=== PATIENT | female | born 1970 | race Caucasian/White ===

== ENCOUNTER 2021-09-29 10:26 | Emergency (ER) | payer OTHER, SELFPAY ==
[2021-09-29 10:44] VITALS: BP 168/105; PULSE 77; RESP 20; TEMP 36.6; O2SAT 96
--- NOTE | 2021-09-29 10:49 | ED.GENADULT ---
HPI - General Adult General Chief complaint: Back Pain/Injury Stated complaint: back pain History of Present Illness HPI narrative: Jordyn is a 50F with a PMH of OA and HTN that presented to the ED with back pain. It started while she was picked up a dog and groomed it. It has become worse. No loss of bowel or bladder control. No weakness or paralysis. It starts between her shoulder blades and goes down the right side to her buttock. Related Data Allergies Allergy/AdvReac Type Severity Reaction Status Date / Time Penicillins Allergy Severe Dyspnea / Verified 09/29/21 10:44 SOB Review of Systems Review of Systems: All systems reviewed & are unremarkable except as noted in HPI and below PMFSH Past Medical History Medical History (Updated 09/29/21 @ 10:54 by Raman Moore DO) Carpal tunnel syndrome, left Surgical History Surgical History (Updated 07/31/21 @ 10:41 by Krissy Mauricio) History of carpal tunnel surgery Right wrist History of cholecystectomy History of knee surgery Left knee meniscus Family History Family History (Updated 07/31/21 @ 10:42 by Krissy Mauricio) Other Arthritis Hypertension Social History Social History (Updated 07/31/21 @ 10:43 by Krissy Mauricio) Smoking packs per day: 1.5 Smoking cigarettes per day: 30.0 Years smoked: 30 Smoking pack-years: 45.00 Smoking status: Current every day smoker Tobacco type: cigarettes Alcohol intake: current Substance use: never Substance use type: does not use 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 Hypertonic paraspinal musculature on the right side along the entire back. Skin: Rashes: no rashes Wounds: no wounds Neuro: General: patient oriented x3 and moves all extremities Extrem: General: normal to inspection Other: 5/5 strength throughout the upper and lower extremities. 2/4 patellar reflexes bialterally, 2/4 biceps, brachioradialis and triceps reflexes Psych: Mental Status: mental status grossly normal Course Course Emergency Course: Given toradol and cyclobenzaprine for pain Vital Signs Vital signs: Vital Signs Temperature 97.9 F 09/29/21 10:44 Pulse Rate 77 09/29/21 10:44 Respiratory Rate 20 09/29/21 10:44 Blood Pressure 168/105 H 09/29/21 10:44 Pulse Oximetry 96 09/29/21 10:44 Oxygen Delivery Room Air 09/29/21 10:44 Temperature 97.9 F 09/29/21 10:44 Pulse Rate 78 09/29/21 11:15 Respiratory Rate 20 09/29/21 11:15 Blood Pressure 168/105 H 09/29/21 10:44 Pulse Oximetry 95 09/29/21 11:15 Oxygen Delivery Room Air 09/29/21 11:15 Medical Decision Making Vital Signs Vital Signs: Vital Signs Temperature 97.9 F 09/29/21 10:44 Pulse Rate 77 09/29/21 10:44 Respiratory Rate 20 09/29/21 10:44 Blood Pressure 168/105 H 09/29/21 10:44 Pulse Oximetry 96 09/29/21 10:44 Oxygen Delivery Room Air 09/29/21 10:44 Temperature 97.9 F 09/29/21 10:44 Pulse Rate 78 09/29/21 11:15 Respiratory Rate 20 09/29/21 11:15 Blood Pressure 168/105 H 09/29/21 10:44 Pulse Oximetry 95 09/29/21 11:15 Oxygen Delivery Room Air 09/29/21 11:15 Discharge Plan Discharge Clinical Impression: Acute mechanical low back pain with duration of less than six weeks Patient Disposition: Home, Self-Care Condition: Stable In
[2021-09-29] MEDS: KETOROLAC 30 MG/ML VIAL (*BKC) IM (10:53)
[2021-09-29] MEDS: CYCLOBENZAPRINE HCL 10 MG TABLET PO (10:54)
[2021-09-29 11:15] VITALS: PULSE 78; RESP 20; O2SAT 95
== END 2021-09-29 11:16 | disposition home or self-care (01) ==
PROVIDERS: Emergency Provider Family Medicine
DX: M54.50 Low back pain, unspecified (principal)
CPT/HCPCS: 96372; 99283; A9270; J1885

== ENCOUNTER 2021-12-11 12:53 | Outpatient (CLI) | payer OTHER, SELFPAY ==
[2021-12-11 15:30] LABS: Urine Cotinine NEGATIVE
== END 2021-12-11 12:54 | disposition home or self-care (01) ==
LOC: ANHLAB 12:54
PROVIDERS: Visit Provider Orthopaedic Surgery
DX: F17.200 Nicotine dependence, unspecified, uncomplicated (principal)
CPT/HCPCS: 80307

== ENCOUNTER 2021-12-16 13:20 | Outpatient (CLI) | payer OTHER, SELFPAY ==
--- NOTE | 2021-12-16 13:30 | ECG_ITS ---
Measurements Intervals [place] Rate: 66 P: 39 MD: 149 QRS: 57 QRSD: 84 T: 61 QT: 387 QTc: 406 Interpretive Statements SINUS RHYTHM NORMAL ECG NO PREVIOUS ECG AVAILABLE FOR COMPARISON Electronically Signed On 12-16-2021 14:18:23 CDT by Dudley London M.D.
== END 2021-12-16 13:21 | disposition home or self-care (01) ==
LOC: ANHSURGERY 13:40
PROVIDERS: Visit Provider Orthopaedic Surgery
DX: Z87.891 Personal history of nicotine dependence (principal); Z01.818 Encounter for other preprocedural examination
CPT/HCPCS: 93005

== ENCOUNTER 2021-12-18 00:09 | Day surgery (SDC) | payer OTHER, SELFPAY ==
[2021-12-15 14:09] VITALS: BMI 22.4
--- NOTE | 2021-12-15 14:43 | PC.NURSE ---
Report to the Outpatient Waiting Room, entrance under the green pavilion located off [facility], at time __0600 on date _12/18/21 . OR Time: _729 . - You and your visitor will be asked to self-screen and do not enter if you have any COVID symptoms. - Only one visitor and NO children visitors are allowed at this time. - The patient visitor is requested to leave or wait in car when not with patient due to restrictions. - A mask is required within the hospital. Patients may have clear liquids (water, carbonated beverages, clear teas, apple juice) until 3 hours prior to surgery with a maximum of 20 ounces. - No food from midnight until time of surgery - Infants may have breast milk until 4 hours before surgery, infant formula 6 hours prior to surgery. - Children will be allowed to drink immediately following surgery. If applicable, please bring a bottle or sippy cup to assist with drinking. Juice, water, soda, and popsicles are readily available. For infants on formula, please bring formula the day of surgery. Pacifiers are allowed. Take the following medications with a SIP of water the morning of surgery: CEPHALEXIN Medications to discontinue per physician ____MULTIVITAMIN Date to take last dose__12/15/21 Please no make-up, nail swedish, hairspray, perfume, deodorant, or body powder the day of surgery. No jewelry (including any body piercings) or valuables the day of surgery, leave them at home. Please take a shower or bath the night before, or the morning of, surgery with an antibacterial soap. Wear comfortable, loose fitting clothing. Children are encouraged to wear pajamas. - Jewelry must be removed prior to entering the operating room. Rings and piercings that are not removed may be cut off. - The hospital will not accept responsibility for valuables. - Please leave all valuables, including medications, at home the day of surgery. If you are going home after surgery, a licensed route sales delivery drivers supervisor must drive you home. - NO public transportation without another adult. - We recommend that an adult stay with you for 24 hours following discharge. - We also recommend that you do not drive, make important decision, drink alcoholic beverages, or take any drugs that were not prescribed by your health care provider for at least 24 hours after your discharge time. For Pediatric surgeries, we recommend two adults accompany the child home (only one inside the building at this time). Follow any additional instructions given to you from your surgeon. If you or anyone in your household have experienced Covid symptoms in the past week, please notify your surgeon or the nurse liaison at the phone number below for possible testing. Telephone instructions given to ____PATIENT and asked if any additional questions and then verbalized understanding. Patient advised to call surgeon office or pre surgery nurse liaison [phone] if any additional questions.
--- NOTE | 2021-12-17 10:40 | PM.IMHP ---
H&P: HPI History of Present Illness Date/Time: 12/17/21 10:40 Chief Complaint: Left hand numbness and tingling. Narrative: 51-year-old woman with continued left hand numbness and tingling. No improvement with activity modification and bracing. As at nerve study which shows median nerve compression and carpal tunnel. Patient with previous right carpal tunnel release with good results. Review of Systems Constitutional: Constitutional: Denies fever(s) Eyes: Eyes: Denies blurry vision ENT: Reports Normal hearing present Cardiovascular: Cardiovascular: Denies chest pain and Denies dyspnea Respiratory: Respiratory: Denies dyspnea and Denies wheezing Gastrointestinal: Gastrointestinal: Denies abdominal pain Genitourinary: Genitourinary: Denies urinary urgency Musculoskeletal: Musculoskeletal: Reports as per HPI and Denies numbness Integumentary/Breasts: Skin/Breast: Denies changing lesions and Denies sores Neurologic: Reports Normal hearing present, Denies behavioral changes, Denies confusion, Denies numbness and Denies convulsions Psychiatric: Psychiatric: Denies behavioral changes, Denies confusion and Denies hallucinations Endocrine: Endocrine: Denies heat intolerance Hematologic/Lymphatic: Hematologic/Lymphatic: Denies easy bleeding Allergic/Immunologic: Allergic/Immunologic: Denies wheezing PMFSH Past Medical History Medical History Carpal tunnel syndrome, left Surgical History Surgical History History of carpal tunnel surgery Right wrist History of cholecystectomy History of knee surgery Left knee meniscus Family History Family History Other Arthritis Hypertension Social History Social History Smoking packs per day: 1.5 Smoking cigarettes per day: 30.0 Years smoked: 34 Smoking pack-years: 51.00 Smoking status: Former smoker Tobacco type: cigarettes Alcohol intake: current Substance use: never Substance use type: does not use Last use: 08/2021 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 [employer] Gender identity (if verbalized by the patient): Female Spiritual care concerns: No Meds Home Medications and Allergies Home Medications Medication Instructions Recorded Confirmed Type Adults Multivitamin 1 tab-cap PO DAILY 12/15/21 12/15/21 History cephalexin 500 mg capsule 500 mg PO TID 12/15/21 12/15/21 History Allergies Allergy/AdvReac Type Severity Reaction Status Date / Time Penicillins Allergy Severe Dyspnea / Verified 12/15/21 14:18 SOB Exam Const: General: cooperative, healthy appearing, no acute distress, well developed and alert; No confusion Orientation/consciousness: patient oriented x3 and No confusion HENMT: Head: normal to inspection, normocephalic and atraumatic Eyes: Conjunctivae: conjunctivae normal Sclera: sclerae normal Neck: Neck: supple and nontender Chest: Chest palpation & inspection: normal inspection of the chest Resp: Effort & Inspection: normal respiratory effort and no audible wheezes Cardio: Rate: regular rate Rhythm: regular rhythm : General: Yes deferred Skin: General skin exam: no rashes or lesions noted Neuro: General: patient oriented x3 and No confusion Assessment and Plan Assessment and plan (1) Carpal tunnel syndrome, left: Code(s): G56.02 - Carpal tunnel syndrome, left upper limb Status: Acute Assessment and Plan: Discussed nonoperative and operative treatment options with the patient. Risks and benefits of each as well as alternatives were reviewed. All of the patient's questions were answered. The risks of surgery reviewed including but not limited to: Neurovascular damage, wound complication, infection, blood
[2021-12-18 06:31] VITALS: BP 169/95; PULSE 78; RESP 18; TEMP 36.3; O2SAT 99
--- NOTE | 2021-12-18 06:53 | P.PNAN_ITS ---
Anes - Initial Pre Proc Eval Procedure: Operation Date: 12/18/21 07:30 Proposed Procedures p Left Carpal Tunnel Release - Wood Bingham MD Date/Time: 12/18/21 06:53 Surgeon: Wood Bingham MD Pre Op Diagnosis: left carpal tunnel syndrome Patient Data Age: 51 Gender: F Height: 1.8 m Weight: 102.6 kg Last Vital Signs Temp 36.3 C L 12/18/21 06:31 Pulse 78 12/18/21 06:31 Resp 18 12/18/21 06:31 BP 169/95 H 12/18/21 06:31 Pulse Ox 99 12/18/21 06:31 O2 Del Method Room Air 12/18/21 06:31 Allergies Allergy/AdvReac Type Severity Reaction Status Date / Time Penicillins Allergy Severe Dyspnea / Verified 12/18/21 06:20 SOB Home Medications Medication Instructions Recorded Confirmed Type Adults Multivitamin 1 tab-cap PO DAILY 12/15/21 12/18/21 History cephalexin 500 mg capsule 500 mg PO TID 12/15/21 12/18/21 History Patient hx anesthesia problems: none Family hx anesthesia problems: none Results Review: All pre-operative results and documents have been reviewed as part of the pre- operative evaluation. [facility] Past Medical History Medical History Carpal tunnel syndrome, left Surgical History Surgical History (Updated 12/18/21 @ 06:53 by Pasha Cannon DO) History of carpal tunnel surgery Right wrist History of cholecystectomy History of knee surgery Left knee meniscus History of partial hysterectomy Family History Family History Other Arthritis Hypertension Social History Social History Smoking packs per day: 1.5 Smoking cigarettes per day: 30.0 Years smoked: 34 Smoking pack-years: 51.00 Smoking status: Former smoker Tobacco type: cigarettes Alcohol intake: current Substance use: never Substance use type: does not use Last use: 08/2021 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 Informed Consent: The patient's anesthetic plan and its attendant risks and benefits were discussed with the patient/family/POA. Questions were solicited and answers provided to the satisfaction of the patient/family/POA.
[2021-12-18] MEDS: ACETAMINOPHEN 500 MG TABLET 1000 MG PO (06:55)
[2021-12-18] MEDS: LACTATED RINGERS 1,000 ML 30 ML IV CONT (06:55)
[2021-12-18] MEDS: KETOROLAC 15 MG/ML VIAL (*BKC) IV PUSH (06:56)
--- NOTE | 2021-12-18 07:01 | WPDHPUPDATE1 ---
History and Physical Update Update Date/Time: 12/18/21 07:01 History and Physical has been reviewed, including an updated exam of the patient. There are NO changes in the patient's condition. Risks, benefits, and alternatives have been discussed and questions answered. Patient agrees to proceed with procedure.
--- NOTE | 2021-12-18 07:22 | SUR.PREOP ---
DR QUEZADA AWARE PATIENT IS ON HOME PO CEPHALEXIN FOR DENTAL ISSUES. STILL OK TO RECEIVE IV ANCEF PER SURGERY ORDERSET.
[2021-12-18] MEDS: ceFAZolin 2 GM/D5W 50 ML 2 GM/50 ML BAG IVPB (07:27)
[2021-12-18] MEDS: LIDOCAINE HCL 2% PF INJ 5 ML VIAL 20 ML INFILTRATE (07:56)
[2021-12-18 08:09] VITALS: BP 108/58; PULSE 70; RESP 18; O2SAT 96
[2021-12-18 08:30] VITALS: BP 146/82; PULSE 63; RESP 16; O2SAT 96
[2021-12-18 09:00] VITALS: BP 160/91; PULSE 61; RESP 16
--- NOTE | 2021-12-18 09:12 | P.OP_ITS ---
Procedure Note - Detailed Date of Procedure 12/18/21 Pre-op Diagnosis left carpal tunnel syndrome Post-op Diagnosis Same Procedure Performed Left carpal tunnel release Surgeon Wood Bingham MD Customer Relations Coordinator 1st hearing aid assistant Anesthesia MAC Indications 51-year-old with left carpal tunnel syndrome per diagnostic testing. Presents for operative treatment. Description of Procedure The patient has history, exam findings, and electrodiagnostic findings consistent with carpal tunnel syndrome. Conservative treatment with bracing/ splinting, activity modifications, medication, ergonomics, injections has failed. Symptoms are daily and affect ability to use hand. The patient desires operative treatment. Procedure: After informed consent was given, the operative extremity was marked in the preoperative holding area. Intravenous antibiotics were given. The patient was taken to the operating room and underwent conscious sedation by the anesthesia team. A time-out was performed confirming patient, procedure, and operative site. Local infiltrate at the carpal tunnel was done with 0.5% marcaine. Prepping and draping was done using chloraprep skin solution with usual surgical sterile technique. Anatomic landmarks marked on skin. Hand was exsanguinated and arm tourniquet inflated to 225mmHg. Incision was made with #15 blade knife in skin crease on volar palm. Hemostasis was achieved with electrocautery. Careful dissection was carried down to the transverse carpal ligament. Retractors were placed. Ligament overlying median nerve was incised in line with skin incision using [place] blade. Proximal and distal release was done with metzenbaum scissors under direct visualization. Mosquito clamp was placed deep to ligament to protect nerve during release. The nerve was inspected and noted to be intact with mild flattening. Tendons had good excursion. The tourniquet was then released and pressure held. Bleeding points were coagulated with bipolar cautery. The wound was thoroughly irrigated with antibiotic solution. The skin was closed with 4-0 nylon interrupted suture. A sterile dressing was applied. Good capillary refill in the fingers and thumb was noted. The patient was transported to the recovery room in stable condition. All sponge, needle, instrument counts were correct at the end of the case. Estimated Blood Loss 2 Tourniquet Time 6 Drains No Packing No Pathology None sent Complications None Condition Stable Disposition PACU
== END 2021-12-18 09:21 | disposition home or self-care (01) ==
PROVIDERS: Visit Provider Orthopaedic Surgery
PROC: (CPT 64721; principal; 2021-12-18 07:30)
DX: G56.02 Carpal tunnel syndrome, left upper limb (principal); Z87.891 Personal history of nicotine dependence; E66.9 Obesity, unspecified; Z68.31 Body mass index [BMI] 31.0-31.9, adult
CPT/HCPCS: 64721; 93005; A9270; J0690; J1885; J2250; J2704; J3010; J7120

== ENCOUNTER 2022-09-22 18:48 | Emergency (ER) | payer OTHER, SELFPAY ==
[2022-09-22 18:48] VITALS: BP 162/99; PULSE 90; RESP 18; TEMP 37.2; O2SAT 98
--- NOTE | 2022-09-22 18:56 | ED.DENTAL ---
HPI - Dental/Oral General Chief complaint: Dental/Oral Stated complaint: lower right dental pain Time Seen by Provider: 09/22/22 18:55 Source: patient and RN notes reviewed Mode of arrival: ambulatory Limitations: no limitations History of Present Illness HPI Narrative: patient states that she went to a local dentist about a month ago and had several injections around the tooth in order to have it removed. She still could feel it had significant pain while they tried to remove it so the procedure was discontinued and she was advised to go see an oral surgeon. She says she cannot get into the Oral surgeon till April. Complaint: tooth pain Onset (ago): day(s) (3) Duration: constant Severity: moderate Exacerbating factors: chewing Context: history of dental caries Treatment prior to arrival: none Related Data Home Medications Medication Instructions Recorded Confirmed Adults Multivitamin 1 tab-cap PO DAILY 12/15/21 12/29/21 cephalexin 500 mg capsule 500 mg PO TID 12/15/21 12/29/21 Allergies Allergy/AdvReac Type Severity Reaction Status Date / Time Penicillins Allergy Severe Dyspnea / Verified 09/22/22 19:11 SOB Review of Systems Review of Systems: All systems reviewed & are unremarkable except as noted in HPI and below PMFSH Past Medical History Medical History Carpal tunnel syndrome, left Surgical History Surgical History History of carpal tunnel surgery Right wrist History of cholecystectomy History of knee surgery Left knee meniscus History of partial hysterectomy Family History Family History Other Arthritis Hypertension Social History Social History Smoking packs per day: 1.5 Smoking cigarettes per day: 30.0 Years smoked: 34 Smoking pack-years: 51.00 Smoking status: Current some day smoker Tobacco type: cigarettes Alcohol intake: current Substance use: never Substance use type: does not use Last use: 08/2021 Living arrangements: with family Occupation/Education: occupation 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 tender swollen small abscess posterior to the tooth. Throat: posterior oropharynx normal Eyes: Conjunctivae: conjunctivae normal Pupils: Equal, round and reactive pupils present EOM: EOMs intact bilaterally Neck: Neck: normal visual inspection Resp: Effort & Inspection: normal respiratory effort Auscultation: clear to auscultation bilaterally Cardio: Rate: regular rate Rhythm: regular rhythm GI: GI Palp: Yes Soft to palpation and No Tenderness to palpation present (GI) Auscultation: normal bowel sounds Back/Spine/Pelvis: Cervical Spine: cervical ROM normal Thoracic/Lumbar Spine: thoraco-lumbar ROM normal Skin: General skin exam: normal color Rashes: no rashes Neuro: General: patient oriented x3, moves all extremities, no focal motor deficits and CN's II-XI intact bilaterally Speech: normal speech Gait exam (Neuro): Normal gait present Extrem: General: normal to inspection and no clubbing, cyanosis or edema Psych: Mental Status: mental status grossly normal Affect: normal affect Attitude: cooperative Course Vital Signs Vital signs: Vital Signs Temperature 37.2 C 05/2
[2022-09-22] MEDS: KETOROLAC 30 MG/ML VIAL (*BKC) IM (19:25)
[2022-09-22] MEDS: CLINDAMYCIN HCL 150 MG CAP 300 MG PO (19:25)
== END 2022-09-22 19:50 | disposition home or self-care (01) ==
PROVIDERS: Emergency Provider Emergency Medicine
DX: K04.7 Periapical abscess without sinus (principal); F17.210 Nicotine dependence, cigarettes, uncomplicated
CPT/HCPCS: 96372; 99283; A9270; J1885

== ENCOUNTER 2022-10-04 17:36 | Emergency (ER) | payer OTHER, SELFPAY ==
--- NOTE | ~2022-10-04 | XR_ITS ---
Right foot Technique: AP, oblique, and lateral views were obtained. Clinical History: Injury Findings: Questionable minimal irregularity lateral aspect of the base of the second metatarsal on th e oblique view. No other evidence for fracture or dislocation. Joint spaces are preserved without ero sive or degenerative change. Soft tissues are unremarkable. Impression: Questionable minimal irregularity at the lateral aspect of the base of second metatarsal. This is fel t to be likely projectional in nature, however subtle fracture is not completely excluded. Correlate for point tenderness in the region of the second TMT joint. Consider CT to further evaluate for fract ure as indicated. Reviewed, dictated and finalized at location . Impression: Questionable minimal irregularity at the lateral aspect of the base of second m etatarsal. This is felt to be likely projectional in nature, however subtle fra cture is not completely excluded. Correlate for point tenderness in the region of the second TMT joint. Consider CT to further evaluate for fracture as indica laura.
[2022-10-04 18:40] VITALS: BP 185/103; PULSE 75; RESP 18; TEMP 36.6; O2SAT 100
--- NOTE | 2022-10-04 19:04 | PC.NURSE ---
report to kendrick keene. all questions answered
[2022-10-04 19:26] VITALS: BP 132/70; PULSE 69; RESP 18; TEMP 36.6; O2SAT 98
[2022-10-04] MEDS: ACETAMINOPHEN 500 MG TABLET 1000 MG PO (20:26)
[2022-10-04] MEDS: TETANUS,DIPHTHERIA,AC PERTUSSIS ADULT 0.5 ML (ADACEL) IM (20:27)
--- NOTE | 2022-10-04 21:27 | ED.GENADULT ---
HPI - General Adult General Chief complaint: Wound/Laceration Stated complaint: R toenail injury;pt thinks she needs tetanus shot Source: patient Mode of arrival: ambulatory Limitations: no limitations History of Present Illness HPI narrative: 51-year-old white female was out in the yd today scraped her 2nd toe on her right foot . Complaint of 2nd toe being painful mildly swollen she has little bit of blood coming underneath the nail, just 1 drop. No subungual hematoma. Hurts to walk on it denies any other injury. Tetanus immunization is greater than 5 years she was given 1 here in the emergency department. Denies any previous injury or other injuries. Denies numbness or weakness. Denies any cough fever sore throat runny nose rash or itching swelling lumps or bumps problems eating or drinking voiding or stooling Related Data Home Medications Medication Instructions Recorded Confirmed No Home Medications 10/04/22 10/04/22 Allergies Allergy/AdvReac Type Severity Reaction Status Date / Time Penicillins Allergy Severe Dyspnea / Verified 09/22/22 19:11 SOB Review of Systems Review of Systems: All systems reviewed & are unremarkable except as noted in HPI and below PMFSH Past Medical History Medical History Carpal tunnel syndrome, left Surgical History Surgical History History of carpal tunnel surgery Right wrist History of cholecystectomy History of knee surgery Left knee meniscus History of partial hysterectomy Family History Family History Other Arthritis Hypertension Social History Social History Smoking packs per day: 1.5 Smoking cigarettes per day: 30.0 Years smoked: 34 Smoking pack-years: 51.00 Smoking status: Current some day smoker Tobacco type: cigarettes Alcohol intake: current Substance use: never Substance use type: does not use Last use: 08/2021 Living arrangements: with family Occupation/Education: occupation 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 right ankle full range of motion nontender right foot. Her 2nd toe is tender mildly swollen she has partial nail avulsion where a drop of blood has come underneath the nail. There is no subungle hematoma. rest of her foot is nontender. Gait is slightly antalgic. DP and PT pulses are +2 capillary refills normal. Course Vital Signs Vital signs: Vital Signs Temperature 36.6 C 10/04/22 18:40 Pulse Rate 75 10/04/22 18:40 Respiratory Rate 18 10/04/22 18:40 Blood Pressure 185/103 H 10/04/22 18:40 Pulse Oximetry 100 10/04/22 18:40 Oxygen Delivery Room Air 10/04/22 18:40 Temperature 36.6 C 10/04/22 19:26 Pulse Rate 69 10/04/22 19:26 Respiratory Rate 18 10/04/22 19:26 Blood Pressure 132/70 10/04/22 19:26 Pulse Oximetry 98 10/04/22 19:26 Oxygen Delivery Room Air 10/04/22 19:26 Medical Decision Making [facility] Narrative Medical decision making narrative: Patient was placed in room 5 history and physical were done x-ray of her right foot was done. Radiologist read a questionable minimally irregularity at the lateral aspect of the base of the 2nd metatarsal and recommend clinical correlation there is no tenderness at that area whatsoever After re-examined. The toe was washed and Band-Aid was applied she is given a tetanus immunization. And A postop shoe for comfort. Independent Historian: Patient Differential Dx includes but not limited to: fracture dislocation Medications were Reviewed: yes Independently Interpreted by me: x-ray of
[2022-10-04 21:39] VITALS: BP 138/74; PULSE 87; RESP 20; TEMP 36.6; O2SAT 98
== END 2022-10-04 21:44 | disposition home or self-care (01) ==
PROVIDERS: Emergency Provider Emergency Medicine
DX: S90.121A Contusion of right lesser toe(s) without damage to nail, initial encounter (principal); F17.210 Nicotine dependence, cigarettes, uncomplicated; Z23 Encounter for immunization; X58.XXXA Exposure to other specified factors, initial encounter
CPT/HCPCS: 73630; 90471; 90715; 99283

== ENCOUNTER 2022-10-14 21:15 | Emergency (ER) | payer OTHER, SELFPAY ==
--- NOTE | ~2022-10-14 | XR_ITS ---
EXAMINATION: XR chest 1V portable INDICATION: Shortness of breath TECHNIQUE: Portable AP chest at 2158 hours COMPARISON: None available FINDINGS: The lungs are free of acute opacities. No pleural effusion or pneumothorax. Thoracic dextro scoliosis is noted. The cardiomediastinal silhouette is normal. IMPRESSION: 1. No acute cardiopulmonary abnormality. Reviewed, dictated and finalized at location A.
--- NOTE | 2022-10-14 21:17 | ED.ANXIETY ---
HPI - Anxiety General Chief Complaint: Anxiety Stated Complaint: Anxiety/stress Time Seen by Provider: 10/14/22 21:16 Source: patient Mode of arrival: ambulatory Limitations: no limitations History of Present Illness HPI narrative: 51-year-old female smoker with a history of anxiety presents to the ER with a 1 day history -- severe stress with anxiety -- numbness and tingling of her fingertips and toes -- shortness of breath. No cough -- high blood pressure of 200/100 at home. Currently her blood pressure is 158/86. no fever or chills no chest pain or palpitation she has had prior episodes of anxiety/panic attacks MD complaint: anxiety Onset (ago): day(s) ( Started since morning.) Symptoms: dyspnea Severity: moderate Quality: constant Place: home History of similar episodes: Yes Provoking factors: emotional stress Relieving factors: nothing Exacerbating factors: nothing Associated symptoms: shortness of breath, weakness and other ( Paresthesias of toes and fingertips) Related Data Allergies Allergy/AdvReac Type Severity Reaction Status Date / Time Penicillins Allergy Severe Dyspnea / Verified 10/14/22 21:25 SOB Review of Systems Review of Systems: All systems reviewed & are unremarkable except as noted in HPI and below Constitutional: Constitutional: Reports as per HPI and Reports no additional constitutional complaints Eyes: Eyes: Reports as per HPI and Reports no additional eye complaints ENT: Reports system reviewed and no additional complaints, except as documented and Reports as per HPI Cardiovascular: Cardiovascular: Reports as per HPI and Reports no additional cardiovascular complaints Respiratory: Respiratory: Reports as per HPI, Reports no additional respiratory complaints and Reports dyspnea Gastrointestinal: Gastrointestinal: Reports as per HPI and Reports no additional gastrointestinal complaints Genitourinary: Genitourinary: Reports no additional female genitourinary complaints and Reports as per HPI Musculoskeletal: Musculoskeletal: Reports no additional musculoskeletal complaints and Reports as per HPI Comments: pulled a muscle in her right back 1 week ago and has intermittent back pain. Integumentary/Breasts: Skin/Breast: Reports system reviewed and no additional complaints, except as docu and Reports as per HPI Neurologic: Reports system reviewed and no additional complaints, except as documented, Reports as per HPI and Reports numbness Psychiatric: Psychiatric: Reports no additional psychiatric complaints, Reports as per HPI and Reports anxiety Endocrine: Endocrine: Reports no additional endocrine complaints and Reports as per HPI Hematologic/Lymphatic: Hematologic/Lymphatic: Reports no additional hematologic/lymphatic complaints and Reports as per HPI Allergic/Immunologic: Allergic/Immunologic: Reports no additional allergic/immunologic complaints and Reports as per HPI [facility] Past Medical History Medical History (Updated 10/15/22 @ 02:00 by Rolando Cavanaugh MD) Anxiety Carpal tunnel syndrome, left Surgical History Surgical History History of carpal tunnel surgery Right wrist History of cholecystectomy History of knee surgery Left knee meniscus History of partial hysterectomy Family History Family History Other Arthritis Hypertension Social History Social History Smoking packs per day: 1.5 Smoking cigarettes per day: 30.0 Years smoked: 34 Smoking pack-years: 51.00 Smoking status: Current some day smoker Tobacco type: cigarettes Alcohol intake: current Substance use: never Substance use type: does not use Last use: 08/2021 Living arrangements: with family Occupation/Education: occupation 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
[2022-10-14 21:28] VITALS: BP 166/87; PULSE 83; RESP 20; TEMP 36.2; O2SAT 100
--- NOTE | 2022-10-14 21:28 | ECG_ITS ---
Measurements Intervals [place] Rate: 67 P: 32 [place]: 146 QRS: 54 QRSD: 76 T: 63 QT: 398 QTc: 422 Interpretive Statements SINUS RHYTHM NONSPECIFIC T-WAVE ABNORMALITY BORDERLINE ECG COMPARED TO ECG 12/16/2021 14:00:07 T-WAVE ABNORMALITY NOW PRESENT Electronically Signed On 10-16-2022 13:42:08 CDT by Oseas Reese M.D.
[2022-10-14 21:45] LABS: Basophils Absolute Auto 0.07 K/mm3 (0.00-0.10); Eosinophils Absolute Auto 0.06 K/mm3 (0.02-0.50); Eosinophils Percent Auto 0.9 % (1.0-6.0); Hematocrit 39.2 % (35.0-49.0); Hemoglobin 13.6 g/dL (12.0-15.0); Immature Granulocyte Absolute 0.01 K/mm3 (0.00-0.00); Immature Granulocyte Percent A 0.1 % (0.0-0.0); Lymphocytes Absolute Auto 2.57 K/mm3 (1.10-4.50); Lymphocytes Percent Auto 36.5 % (18.0-42.0); Mean Corpuscular HGB Conc 34.7 g/dL (32.0-36.0); Mean Corpuscular Hemoglobin 31.4 pg (27.0-31.0); Mean Corpuscular Volume 90.5 fL (78.0-102.0); Mean Platelet Volume 10.1 fl (9.2-11.8); Monocytes Absolute Auto 0.54 K/mm3 (0.10-0.90); Monocytes Percent Auto 7.7 % (2.0-11.0); Neutrophils Absolute Auto 3.8 K/mm3 (1.7-7.2); Neutrophils Percent Auto 53.8 % (50.0-70.0); Platelet Count Result 243 K/mm3 (150-420); Red Blood Count 4.33 M/mm3 (4.20-5.40); Red Cell Distribution Width 12.3 % (11.6-14.4); White Blood Count 7.1 K/mm3 (4.8-10.8)
[2022-10-14 22:02] LABS: Lactic Acid Reflex 0.7 mmol/L (0.4-2.0)
[2022-10-14] MEDS: ALPRAZolam (*CRX) 0.5 MG TABLET PO (22:03)
[2022-10-14 22:15] LABS: Alanine Aminotransferase 26 U/L (14-59); Alkaline Phosphatase 135 U/L (46-116); Anion Gap 12 mmol/L (8-16); Aspartate Amino Transferase 17 U/L (15-37); Bilirubin,Total 0.6 mg/dL (0.00-1.00); Blood Urea Nitrogen 11 mg/dL (7-18); Calcium 9.5 mg/dL (8.5-10.1); Carbon Dioxide 26 mmol/L (21-32); Chloride 106 mmol/L (98-108); Estimated CRCL calculation 97 ml/min; Estimated Glomerular Filt Rate > 60; Glucose 105 mg/dL (70-99); Osmolality Calculated 297 mOsm/kg (285-295); Potassium 2.8 mmol/L (3.5-5.1); Sodium 144 mmol/L (136-145); Total Protein 8.1 g/dL (6.4-8.2)
[2022-10-14 22:16] LABS: Appearance Urine Clear (Clear); Bilirubin Urine Negative (Negative); Blood Urine 1+ (Negative); Color Urine Light Yellow (Yellow); Glucose Urine UA Negative (Negative); Ketones Urine Negative (Negative); Leukocyte Esterase Ur 2+ LEU/UL (Negative); Nitrate Urine Negative (Negative); Protein Urine Negative (Negative); Urobilinogen Urine 0.2 mg/dL (0.2-1.0); pH Urine 7.5 (5.0-8.0)
[2022-10-14 22:21] LABS: Add Urine Microscopic? YES; RBC Urine 0-2 /hpf (0-2); Squamous Epithelial Cell Urine Few /hpf (Few)
[2022-10-14 22:22] LABS: Bacteria Urine Trace /hpf
[2022-10-14 22:25] LABS: Magnesium 1.9 mg/dL (1.8-2.4); Thyroid Stimulating Hormone 4.45 uIU/mL (0.36-3.74); Troponin I 9.7 ng/L (0.00-60.4)
[2022-10-14 22:41] VITALS: BP 139/74; PULSE 77; RESP 17; O2SAT 92
[2022-10-14 23:01] VITALS: BP 139/93; PULSE 74; RESP 16; O2SAT 97
[2022-10-14 23:18] VITALS: BP 154/84; PULSE 75; RESP 15; O2SAT 99
[2022-10-14] MEDS: KCL 20 MEQ/SW 100 ML 100 ML 50 MEQ IVPB (23:32)
[2022-10-14] MEDS: POTASSIUM CHLORIDE 20 MEQ PACKET (FOR LIQUID) PO (23:32)
[2022-10-14] MEDS: SPIRONOLACTONE 25 MG TABLET PO (23:33)
[2022-10-14] MEDS: CIPROFLOXACIN 250 MG TABLET PO (23:33)
[2022-10-15 00:01] VITALS: BP 181/100; PULSE 79; RESP 17; O2SAT 98
[2022-10-15 00:46] VITALS: BP 161/92; PULSE 74; RESP 17; O2SAT 97
--- NOTE | 2022-10-15 01:55 | PC.NURSE ---
patient states, I can not wait another two hours for this to finish. I want to leave now. this staff member informed the pt that I would notify the doctor.
--- NOTE | 2022-10-15 02:12 | PC.NURSE ---
AMA formed signed by patient, Md Cavanaugh, and LESLY Knox
[2022-10-15 02:19] VITALS: BP 160/75; PULSE 80; RESP 17; TEMP 36.9; O2SAT 98
--- NOTE | 2022-10-17 17:15 | PC.NURSE ---
final report for urine culture reviewed. no growth found. no change in plan of care.
== END 2022-10-15 02:25 | disposition left against medical advice (07) ==
PROVIDERS: Emergency Provider Internal Medicine Critical Care Medicine; PCP Nurse Practitioner Family
DX: N30.00 Acute cystitis without hematuria (principal); F41.9 Anxiety disorder, unspecified; F17.210 Nicotine dependence, cigarettes, uncomplicated
CPT/HCPCS: 36415; 71045; 80053; 81001; 83605; 83735; 84443; 84484; 85025; 87086; 93005; 96365; 96366; 99284; A9270; J3480

== ENCOUNTER 2022-10-22 09:25 | Outpatient (CLI) | payer OTHER, SELFPAY ==
[2022-10-22 09:41] LABS: Basophils Absolute Auto 0.06 K/mm3 (0.00-0.10); Eosinophils Absolute Auto 0.07 K/mm3 (0.02-0.50); Eosinophils Percent Auto 1.1 % (1.0-6.0); Hematocrit 42.9 % (35.0-49.0); Hemoglobin 14.3 g/dL (12.0-15.0); Immature Granulocyte Absolute 0.01 K/mm3 (0.00-0.00); Immature Granulocyte Percent A 0.2 % (0.0-0.0); Lymphocytes Absolute Auto 1.58 K/mm3 (1.10-4.50); Lymphocytes Percent Auto 25.9 % (18.0-42.0); Mean Corpuscular HGB Conc 33.3 g/dL (32.0-36.0); Mean Corpuscular Hemoglobin 31.2 pg (27.0-31.0); Mean Corpuscular Volume 93.5 fL (78.0-102.0); Mean Platelet Volume 10.4 fl (9.2-11.8); Monocytes Absolute Auto 0.38 K/mm3 (0.10-0.90); Monocytes Percent Auto 6.2 % (2.0-11.0); Neutrophils Percent Auto 65.6 % (50.0-70.0); Platelet Count Result 240 K/mm3 (150-420); Red Blood Count 4.59 M/mm3 (4.20-5.40); Red Cell Distribution Width 12.4 % (11.6-14.4); White Blood Count 6.1 K/mm3 (4.8-10.8)
[2022-10-22 10:40] LABS: Alanine Aminotransferase 28 U/L (14-59); Albumin Level 4.2 g/dL (3.4-5.0); Alkaline Phosphatase 142 U/L (46-116); Anion Gap 8 mmol/L (8-16); Aspartate Amino Transferase 16 U/L (15-37); Bilirubin,Total 0.5 mg/dL (0.00-1.00); Blood Urea Nitrogen 16 mg/dL (7-18); Calcium 9.6 mg/dL (8.5-10.1); Carbon Dioxide 28 mmol/L (21-32); Chloride 105 mmol/L (98-108); Cholesterol 176 mg/dL (0-200); Estimated Glomerular Filt Rate > 60; Glucose 113 mg/dL (70-99); HDL Direct 48 mg/dL (40-60); LDL Cholesterol Calculated 112 mg/dL (<130); Osmolality Calculated 294 mOsm/kg (285-295); Potassium 4.1 mmol/L (3.5-5.1); Sodium 141 mmol/L (136-145); Thyroid Stimulating Hormone 1.49 uIU/mL (0.36-3.74); Total Protein 8.2 g/dL (6.4-8.2); Triglycerides 81 mg/dL (0-150)
[2022-10-22 11:23] LABS: Hemoglobin A1C 5.6 % (<5.7)
== END 2022-10-22 09:26 | disposition home or self-care (01) ==
PROVIDERS: PCP Nurse Practitioner Family; Visit Provider Nurse Practitioner Family
DX: F41.9 Anxiety disorder, unspecified (principal); R73.01 Impaired fasting glucose
CPT/HCPCS: 36415; 80053; 80061; 83036; 84443; 85025

== ENCOUNTER 2022-11-12 08:54 | Outpatient (CLI) | payer OTHER, SELFPAY ==
--- NOTE | 2022-11-18 11:49 | P.PCNPFT_ITS ---
PFT Procedure Performed PFT Procedure Performed Spirometry with Pre/Post Bronchodilator Plethysmography (Lung Vol) Diffusing Cap (DLCO) Flow Vol Loop PFT Interpretation DOS: 11/12/2022 REQUESTING: Kayla Ramos APRN REASON FOR TESTING: panic attacks PULMONARY FUNCTION TESTS Results are reliable and reproducible. Spirometry: Pre-bronchodilator FEV1 is 2.31 L, 76% predicted, normal. Pre- bronchodilator F FVC is 3.55 L, 94%. FEV1/ FVC ratio is 65%, reduced, consistent with airflow obstruction. After bronchodilator administration FEV1 increases by 15%, 2.66 L, 88% predicted. FVC increases to 3.73 L, 99% predicted, 5% increase. The FEV1 / FVC ratio is 71%, normal. The [id number]% is 1.26 L, 37% predicted. This increases after bronchodilator to 1.85 L, 54% predicted, 47% increase which is substantial. Lung volumes: Total lung capacity is 5.70 L, 89%, normal. Residual volume 1. 74 L, 74% predicted, normal. RV / TLC is 30%, normal. No hyperinflation or air trapping. No restriction. Airway resistance 217 cm water/ L /2nd. Diffusion: DLCO is 16.9, 58% predicted, borderline decreased. DLCO / VA is 3.26, 81%, normal. Flow volume loop: Flow volume loop shows minimal coving of the expiratory limb. IMPRESSION: This study shows mild obstructive ventilatory impairment which is severe in the small airways with excellent response to bronchodilator, normal lung volumes and a minimal diffusion impairment which corrects for alveolar volume. In the proper clinical setting, this may be compatible with asthma. There are no prior studies for comparison. Brittany Bolton MD
== END 2022-11-12 08:55 | disposition home or self-care (01) ==
LOC: CHSCARD 08:55
PROVIDERS: PCP Nurse Practitioner Family; Visit Provider Nurse Practitioner Family
DX: F41.0 Panic disorder [episodic paroxysmal anxiety] (principal); F43.0 Acute stress reaction; R94.2 Abnormal results of pulmonary function studies
CPT/HCPCS: 94060; 94726; 94729

== ENCOUNTER 2022-12-24 09:09 | Outpatient (CLI) | payer OTHER, SELFPAY ==
--- NOTE | ~2022-12-24 | XR_ITS ---
EXAMINATION: XR hip BI 2V w AP pelvis DATE: 12/24/2022 09:54 INDICATION: Bilateral hip pain TECHNIQUE: AP view the pelvis and two views of each hip were obtained. COMPARISON: None. FINDINGS: Bone alignment is normal. There is no fracture. There are phleboliths of the pelvis. An IUD is noted. The soft tissues are unremarkable. IMPRESSION: 1. No acute osseous abnormality. Reviewed, dictated and finalized at location A.
--- NOTE | ~2022-12-24 | XR_ITS ---
EXAMINATION: XR thoracic spine 3V DATE: 12/24/2022 09:54 INDICATION: Thoracic back pain TECHNIQUE: AP, lateral and lateral swimmer's views of the thoracic spine were obtained. COMPARISON: None. FINDINGS: There are 23 degrees of thoracic dextroscoliosis. The vertebral body heights are maintained . There is no fracture. There is mild asymmetric loss of intervertebral disc space height on the left in the midthoracic spine and the area of scoliosis. Small degenerative osteophytes project from the anterior endplates of multiple vertebral bodies. IMPRESSION: 1. Thoracic dextroscoliosis and mild spondylosis without acute findings. Reviewed, dictated and finalized at location A.
--- NOTE | ~2022-12-24 | XR_ITS ---
EXAMINATION: XR lumbar spine 2-3V DATE: 12/24/2022 09:54 INDICATION: Back pain TECHNIQUE: Anteroposterior and lateral views of the lumbar spine, and cone-down lateral view of the l umbosacral junction were obtained. COMPARISON: None. FINDINGS: There are 10 degrees of lumbar levocurvature. Bone alignment is normal. There is no fractur e. The vertebral body heights and intervertebral disc spaces are maintained. Small degenerative osteo phytes project from the anterior endplates of multiple vertebral bodies. There is mild facet joint os teoarthritis of the lower lumbar spine. Surgical clips in the right upper quadrant are likely from pr ior cholecystectomy. IMPRESSION: 1. Mild lumbar spondylosis without acute findings. Reviewed, dictated and finalized at location A.
== END 2022-12-24 09:10 | disposition home or self-care (01) ==
LOC: CHSIMG 09:10
PROVIDERS: PCP Nurse Practitioner Family; Visit Provider Nurse Practitioner Family
DX: M54.50 Low back pain, unspecified (principal); Z87.39 Personal history of other diseases of the musculoskeletal system and connective tissue; M41.84 Other forms of scoliosis, thoracic region; M43.04 Spondylolysis, thoracic region; M43.06 Spondylolysis, lumbar region
CPT/HCPCS: 72072; 72100; 73521

== ENCOUNTER 2023-01-07 07:53 | Outpatient (RCR) | payer OTHER, SELFPAY ==
--- NOTE | 2023-01-08 07:22 | OPREHPOC ---
Outpatient Therapy Plan of Care This is a Multidisciplinary Plan of Care that may contain components documented by all disciplines (PT, OT, and ST.) PT Problem 1 PT Problem #1 Knowledge Deficit PT Goal 1 Goal 1. Patient to demonstrate independence with HEP to improve progress made in PT. Target Visit 5 PT Problem 2 PT Problem #2 Impaired Strength PT Goal 1 Goal 1. Patient to improve bilateral hip strength to 5/ 5 to improve ability to squat to floor to reach dog toys. Target Visit 10 PT Problem 3 PT Problem #3 Impaired Flexibility PT Goal 1 Goal 1. Patient to improve bilateral hamstring length to lacking 10 degrees or less to improve ability to bend forward while putting on shoes. Target Visit 10 PT Problem 4 PT Problem #4 Pain PT Goal 1 Goal 1. Patient to report pain at worst as 3/10 or less following work dog to improve tolerance to this activity. Target Visit 10 PT Problem 5 PT Problem #5 Impaired Functional Mobil PT Goal 1 Goal 1. Patient to improve Oswestry score to no more than 15% functional decline to allow for increased quality of life. 2. Patient to report walking for 30 minutes without stopping due to pain to allow for her to enjoy walks with her daughter. 3. patient to squat and lift 30# from floor to waist with safe mechanics and no pain to improve functional lifting ability at home and work. Target Visit 10
--- NOTE | 2023-01-08 07:23 | PTOPEVAL1 ---
Assessment and note entered by JT File, PT Evaluation Information Assessment Status Evaluation Diagnosis low back pain Onset 12/25/22 Subjective Information Patient reports having back pain and numbness down the left leg with pain and occasional cramping into the L calf. Patient notes the back pain has been present for years, but about one month ago while sitting in bed she bent forward which greatly increased the pain. Following this she was unable to perform her normal daily activities. She notes the pain is constant throughout the day. 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 She likes to walk with her daughter, but notes this causes discomfort along the L leg. Patient additionally reports pain with sidelying on the L while she sleeps. She notes she uses ice and pain meds prescribed by the doctor. She visited the doctor, who performed x-rays showing scoliosis and lumbar spinal stenosis. Reported Pain Level Pain Score 1: Self Report Assessment PT Clinical Summary Jordyn Gordon is a 52 y/o female who presents to skilled PT for low back pain. She demonstrates limitations in lumbar ROM, LE strength, and flexibility. 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 She currently has 30% functional decline as assessed by the Oswestry back index. Patient would benefit from skilled PT to address impairments and help patient to return to all prior activities and improve tolerance with work duties. Plan of Care Interventions Electrical Stimulation,Hot Pack/Cold Pack,Manual Therapy,Mechanical Traction,Neuro Re-education, Patient/Caregiver Educati,Therapeutic Activities, Therapeutic Exercise PT Services Indicated Yes Treatment Frequency and 2x/week for 10 visits Duration These treatments will address the objective and functional deficits as defined above. The patient will be advanced safely and appropriately in order for the patient to progress towards his/her prior level of function. Additional exercises will be introduced and as well as a comprehensive home exercise program upon discharge, if needed, ?to ensure carryover of functional gains achieved in the clinic. This treatment plan has been reviewed and agreement upon by the patient.
== END 2023-02-09 20:00 | disposition home or self-care (01) ==
LOC: CHSPT 07:53
PROVIDERS: PCP Family Medicine; Visit Provider Nurse Practitioner Family
DX: M54.50 Low back pain, unspecified (principal); Z87.39 Personal history of other diseases of the musculoskeletal system and connective tissue
CPT/HCPCS: 97014; 97110; 97140; 97161; G0283

== ENCOUNTER 2023-03-16 16:56 | Outpatient (NON) | payer OTHER, SELFPAY ==
[2023-03-16 17:06] LABS: Appearance Urine Clear (Clear); Bilirubin Urine Negative (Negative); Blood Urine Trace-Intact (Negative); Color Urine Light Yellow (Yellow); Glucose Urine UA Negative (Negative); Ketones Urine Negative (Negative); Leukocyte Esterase Ur Trace (Negative); Nitrate Urine Negative (Negative); Protein Urine Negative (Negative); Specific Grav Ur 1.025 (1.010-1.020); Urobilinogen Urine 0.2 mg/dL (0.2-1.0)
[2023-03-16 17:17] LABS: Add Urine Microscopic? YES; RBC Urine 0-2 /hpf (0-2); Renal Epithelial Cells Urine Few /hpf; Squamous Epithelial Cell Urine Few /hpf (Few); WBC Urine 0-3 /hpf (0-3)
[2023-03-16 17:18] LABS: Bacteria Urine 1+ /hpf
== END 2023-03-16 16:57 | disposition home or self-care (01) ==
LOC: CHSLAB 16:58
PROVIDERS: Visit Provider Nurse Practitioner Family
DX: R39.9 Unspecified symptoms and signs involving the genitourinary system (principal)
CPT/HCPCS: 81001

== ENCOUNTER 2023-05-31 11:49 | Outpatient (CLI) | payer OTHER, SELFPAY ==
--- NOTE | ~2023-05-31 | DEXA_ITS ---
Bone Density Report Name: LIZBETH MACHADO Age: 52 Sex: Female Ethnicity: White Date of : 1970 Indication: screening for osteoporosis; Referring Provider: DANIKA FLORES Study: Bone densitometry was performed. Exam Date: May 31, 2023 Accession number: [id number] Bone Density: Region BMD T-score Z-score Classification AP Spine(L1-L4) 1.182 1.2 2.1 Normal Femoral Neck (Left) 0.777 -0.7 0.2 Normal Total Hip (Left) 0.909 -0.3 0.3 Normal Femoral Neck (Right) 0.763 -0.8 0.1 Normal Total Hip (Right) 0.905 -0.3 0.3 Normal Femoral Neck Mean 0.770 -0.7 0.2 Normal Total Hip Mean 0.907 -0.3 0.3 Normal World Health Organization criteria for BMD impression classify patients as: Normal (T-score at or above -1.0), Osteopenia (T-score between -1.0 and -2.5), or Osteoporosis (T-score at or below -2.5). 10-year Fracture Risk: FRAX not reported because: Premenopausal woman All T-scores for Spine Total, Hip Total, Femoral Neck at or above -1.0 Clinical Information Provided by Patient: Smokes Patient maximum height was 71.0 Menopause Age: 49 No regular weight bearing exercise Does not regularly consume dairy products Onset of menses at age 12 Premenopausal Number of children 2 Impression: The patient's bone mass is within expected range for age, gender and ethnicity. The patient has risk factors, including: smoking. Discussion: BONE DENSITY IS WITHIN EXPECTED LIMITS FOR AGE, SEX AND RACE. Bone density is within expected limits for age, sex and race at all sites measured. The patient should follow a healthful lifestyle (good nutrition with adequate calcium and vitamin D, and appropriate weight-bearing exercise). Follow-Up: Consider repeating this study in 5 years or sooner if there is some new clinical indication. Reported by: Dr. Luis A Ho on 05/31/2023 12:31:00 PM. Reviewed, dictated and finalized at location A.
--- NOTE | ~2023-05-31 | MM_ITS ---
EXAMINATION: MM screening brigida BI w juan HISTORY: Screening TECHNIQUE: Craniocaudal and mediolateral oblique 3-D tomosynthesis images were obtained and synthetic 2-D images were generated. CAD analysis was submitted and interpreted. COMPARISON: No prior mammogram is available for comparison at this institution. BREAST PARENCHYMAL COMPOSITION: Breast composed of scattered areas of fibroglandular density FINDINGS: There are asymmetries in the upper aspect of the right breast. No mammographic evidence for malignancy in the left breast. IMPRESSION: 1. Right breast asymmetries located superiorly on MLO view. 2. Additional mammographic views and possible breast ultrasound are recommended. BI-RADS Category 0: Incomplete: Needs additional imaging evaluation. Reviewed, dictated and finalized at location A. PHOTOGRAPHER IMPRESSION: 1. Right breast asymmetries located superiorly on MLO view. 2. Additional mammographic views and possible breast ultrasound are recommended . BI-RADS Category 0: Incomplete: Needs additional imaging evaluation.
== END 2023-05-31 11:50 | disposition home or self-care (01) ==
LOC: CHSIMG 11:50
PROVIDERS: PCP Family Medicine; Visit Provider Nurse Practitioner Family
DX: Z12.31 Encounter for screening mammogram for malignant neoplasm of breast (principal); Z78.0 Asymptomatic menopausal state; R92.8 Other abnormal and inconclusive findings on diagnostic imaging of breast
CPT/HCPCS: 77063; 77067; 77080

== ENCOUNTER 2023-06-10 08:57 | Outpatient (CLI) | payer OTHER, SELFPAY ==
--- NOTE | ~2023-06-10 | MMUS_ITS ---
EXAMINATION: MM diagnostic brigida RT w juan, US breast RT limited HISTORY: Focal asymmetries reported in the upper aspect of right breast on 05/31/2023 screening mammog rene TECHNIQUE: Additional 3-D tomosynthesis images of the right breast were performed and synthetic 2-D i mages were generated. CAD analysis was submitted and interpreted. High resolution upper outer quadran t right breast ultrasound was performed. COMPARISON: 05/31/2023 bilateral screening mammogram FINDINGS: MAMMOGRAPHIC FINDINGS: There is a nonspecific focal irregular approximately 6 x 10 mm density measuring overlying the right axillary tail in the posterior upper outer quadrant. No suspicious mass, architectural distortion, malignant calcification, skin thickening or retraction or significant abnormalities noted elsewhere. ULTRASOUND: 9:00 10 cm from nipple: Circumscribed 3.7 x 4.2 x 3.4 mm hypoechoic lesion without internal vasculari ty or posterior shadowing, likely benign No other suspicious mass is evident. IMPRESSION: 1. Suspicious asymmetric irregular approximately 6 by 10 mm opacity in posterior upper outer right br east 2. Stereotactic biopsy of this mass is recommended; if this lesion proves to be too superficially sit uated for stereotactic biopsy, then mammographically guided marker placement with subsequent surgical excision is recommended. BI-RADS category 4, suspicious findings. Dr. Ernst telephoned the report and stereotactically guided biopsy recommendation for right axillary t ail breast mass on June 10, 2023 at 1000 hours to voicemail at [phone]. Reviewed, dictated and finalized at location A. STERED PHARMACY TECHNICIAN IMPRESSION: 1. Suspicious asymmetric irregular approximately 6 by 10 mm opacity in posterio r upper outer right breast 2. Stereotactic biopsy of this mass is recommended; if this lesion proves to be too superficially situated for stereotactic biopsy, then mammographically guid ed marker placement with subsequent surgical excision is recommended. BI-RADS category 4, suspicious findings. Dr. Ernst telephoned the report and stereotactically guided biopsy recommendatio n for right axillary tail breast mass on June 10, 2023 at 1000 hours to voic email at [phone]. IMPRESSION: 1. Suspicious asymmetric irregular approximately 6 by 10 mm opacity in posterio r upper outer right breast 2. Stereotactic biopsy of this mass is recommended; if this lesion proves to be too superficially situated for stereotactic biopsy, then mammographically guid ed marker placement with subsequent surgical excision is recommended. BI-RADS category 4, suspicious findings. Dr. Ernst telephoned the report and stereotactically guided biopsy recommendatio n for right axillary tail breast mass on June 10, 2023 at 1000 hours to [facility] email at [phone].
== END 2023-06-10 08:58 | disposition home or self-care (01) ==
LOC: CHSIMG 08:58
PROVIDERS: PCP Family Medicine; Visit Provider Nurse Practitioner Family
DX: R92.8 Other abnormal and inconclusive findings on diagnostic imaging of breast (principal); N64.89 Other specified disorders of breast
CPT/HCPCS: 76642; 77061; 77065; G0279

== ENCOUNTER 2023-09-16 09:59 | Outpatient (CLI) | payer OTHER, SELFPAY ==
[2023-09-16 11:31] LABS: Alanine Aminotransferase 35 U/L (14-59); Alkaline Phosphatase 119 U/L (46-116); Anion Gap 8 mmol/L (4-12); Aspartate Amino Transferase 20 U/L (15-37); Bilirubin,Total 0.5 mg/dL (0.00-1.00); Blood Urea Nitrogen 16 mg/dL (7-18); Calcium 9.4 mg/dL (8.5-10.1); Carbon Dioxide 31 mmol/L (21-32); Chloride 104 mmol/L (98-108); Estimated Glomerular Filt Rate > 60; Glucose 101 mg/dL (70-99); Magnesium 1.9 mg/dL (1.8-2.4); Osmolality Calculated 297 mOsm/kg (285-295); Potassium 4.3 mmol/L (3.5-5.1); Sodium 143 mmol/L (136-145); Thyroid Stimulating Hormone 2.08 uIU/mL (0.36-3.74); Total Protein 7.5 g/dL (6.4-8.2); Vitamin B12 430 pg/mL (193-986)
[2023-09-16 11:50] LABS: Free T4 Free Thyroxine 0.85 ng/dL (0.76-1.46)
[2023-09-18 05:43] LABS: Vitamin D 25 Hydroxy 32 ng/mL (30-100)
== END 2023-09-16 10:00 | disposition home or self-care (01) ==
PROVIDERS: PCP Nurse Practitioner Family; Visit Provider Nurse Practitioner Family
DX: R73.01 Impaired fasting glucose (principal); R79.89 Other specified abnormal findings of blood chemistry; F41.9 Anxiety disorder, unspecified; Z79.899 Other long term (current) drug therapy
CPT/HCPCS: 36415; 80053; 82306; 82607; 83735; 84439; 84443

== ENCOUNTER 2023-12-14 18:31 | Outpatient (CLI) | payer OTHER, SELFPAY ==
--- NOTE | ~2023-12-14 | XR_ITS ---
EXAM: [id number]_CR DATE: 12/14/2023 18:57 HISTORY: M25.561 - Pain in right knee FOR A LONG TIME/NO TRAUMA . COMPARISON: None available. FINDINGS: Normal mineralization. No fracture or dislocation. No lytic or blastic lesion. Mild medial joint space narrowing. Mild tricompartmental osteophytosis. Mild enthesopathy at the tibial tuberosi ty. Small volume knee joint fluid. No erosion or periosteal change. Soft tissues within normal limits . IMPRESSION: Mild tricompartmental right knee osteoarthritis. Minimal right knee joint effusion. Reviewed, dictated and finalized at location K.
== END 2023-12-14 18:32 | disposition home or self-care (01) ==
LOC: CHSIMG 18:32
PROVIDERS: PCP Nurse Practitioner Family; Visit Provider Nurse Practitioner Family
DX: M25.561 Pain in right knee (principal); M17.11 Unilateral primary osteoarthritis, right knee; M25.461 Effusion, right knee
CPT/HCPCS: 73560

== ENCOUNTER 2024-05-04 11:42 | Outpatient (CLI) | payer OTHER, SELFPAY ==
--- NOTE | ~2024-05-04 | XR_ITS ---
XR ankle RT min 3V Ordering provider: Raman Moore DO History: . Pain in right ankle and joints of right foot nontrauma . Comparison: None. FINDINGS: BONES: No acute fracture or dislocation. Small bony fragment is seen near to the medial malleolus mos t likely due to old fracture or nonunited apophysis.. Calcaneal spur. JOINT SPACES: Normal. SOFT TISSUES: Normal. IMPRESSION: No acute osseous abnormality of the right ankle. Bony fragment most likely due to old fracture near to the medial malleolus. Reviewed, dictated and finalized at location A. 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
== END 2024-05-04 11:43 | disposition home or self-care (01) ==
LOC: CHSIMG 11:45
PROVIDERS: PCP Family Medicine; Visit Provider Family Medicine
DX: M25.571 Pain in right ankle and joints of right foot (principal)
CPT/HCPCS: 73610

== ENCOUNTER 2025-03-14 12:45 | Outpatient (CLI) | payer OTHER, SELFPAY ==
--- NOTE | ~2025-03-14 | XR_ITS ---
EXAMINATION: XR chest 2V, 03/14/2025 13:05 NURSING EDUCATION CONSULTANT HISTORY: R06.02 - Shortness of breath COMPARISON: No comparisons available. Technique: 2 views obtained. Findings: The lungs are clear, no effusion. No pneumothorax. Heart is normal size. Mediastinal and hilar contours are within normal limits. Bony thorax no acute abnormality. Impression: No acute cardiopulmonary abnormality. Reviewed, dictated and finalized at location P. ING EDUCATION CONSULTANT Impression: No acute cardiopulmonary abnormality.
--- NOTE | 2025-03-14 13:01 | ECG_ITS ---
Test Date: 2025-03-14 13:09:33 Measurements Intervals [place] Rate: 65 P: 66 OR: 139 QRS: 74 QRSD: 88 T: 73 QT: 409 QTc: 426 Interpretive Statements SINUS RHYTHM No previous ECG available for comparison Electronically Signed On 03-14-2025 13:24:47 LEAD OXIDE MILL TENDER by Erick Esquivel M.D.
[2025-03-14 13:03] LABS: Hematocrit 42.4 % (35.0-49.0); Hemoglobin 14.3 g/dL (12.0-15.0); Immature Granulocyte Percent A 0.4 % (0.0-0.0); Lymphocytes Absolute Auto 1.72 K/mm3 (1.10-4.50); Mean Corpuscular HGB Conc 33.7 g/dL (32-36); Mean Corpuscular Hemoglobin 31.4 pg (27.0-31.0); Mean Corpuscular Volume 93.2 fL (78.0-102.0); Nucleated Red Blood Cells Absolute Auto 0.00 K/mm3 (0.00-0.00); Nucleated Red Blood Cells Perc 0.0 % (0-0.0); Platelet Count Result 254 K/mm3 (150-420); Red Blood Count 4.55 M/mm3 (4.20-5.40); White Blood Count 5.5 K/mm3 (4.8-10.8)
[2025-03-14 13:19] LABS: Add Urine Microscopic? YES; Appearance Urine Clear (Clear); Glucose Urine UA Negative (Negative); Leukocyte Esterase Ur 1+ LEU/UL (Negative); Nitrate Urine Negative (Negative); Specific Grav Ur 1.015 (1.010-1.020)
--- OUTSIDE RECORDS SUMMARY | 2025-03-14 13:47 | XMS_ITS | Clinical Summary ---
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 Name Role Phone JamieRaman urrutia Primary Care Provider [phone] Social History Tobacco Use Types Packs/Day Years Used Date Smoking Tobacco: Never Assessed Comments Unknown Sex and Gender Information Value Date Recorded Sex Assigned at Not on file Legal Sex Female 2:22 PM ORGAN RECOVERY COORDINATOR Gender Identity Not on file Sexual Orientation Not on file Plan of Treatment Health Maintenance Due Date Last Done Comments Cervical Cancer Screening Pa p Smear (Age 30 to 64) Every 3 Years 1970 Colorectal Cancer Screening Colonoscopy (10 Years) 1970 Annual Physical 1973 Hepatitis C 1988 Hepatitis B Vaccines (1 of 3 - 19+ 3-dose series) 1989 Cervical Cancer Screening Pa p with HPV Testing (Age 30 to 64) Every 5 Years 2000 Cervical Cancer Screening wi th HPV 2000 Pneumococcal Vaccine: 50+ Years (1 of 1 - PCV) 2020 Zoster Vaccines (1 of 2) 2020 COVID-19 Vaccine (4 - 2024-2 6 season) 2025 05/02/2021, 07/19/2020, 06/21/2020 Influenza Adult (#1) 2025 01/30/2023 Mammogram Screening 07/05/2025 07/06/2023 DTaP, Tdap and Td Vaccines ( 2 - Td or Tdap) 10/04/2032 10/04/2022 Hepatitis A Vaccines Aged Out No long er eligible based on patient's age to complete this topic Meningococcal B Vaccine Aged Out No l onger eligible based on patient's age to complete this topic Meningococcal Vaccine Aged Out No roosevelt oumar eligible based on patient's age to complete this topic RSV Immunizations Under 20 Months Aged Out No longer eligible b ased on patient's age to complete this topic Procedures Procedure Name Priority Date/Time Associated Diagnosis Comments MG POST PROC RT DIAG MAMMO Routine 07/06/2023 9:00 AM ORGAN RECOVERY COORDINATOR Abnormal mammogram from Last 3 Months or Most Recently Relevant to Health Maintenance Results * MG POST PROC RT DIAG MAMMO (07/06/2023 9:00 AM ORGAN RECOVERY COORDINATOR) Anatomical Region Laterality Modality Breast Right Radiographic Ratna ging 07/06/2023 9:06 AM ORGAN RECOVERY COORDINATOR Addenda Addendum by Jorge Glass MD on 07/21/2023 8:39 AM CDT Pathology addendum: The pathology report demonstrates benign fibrocystic changes and ductal hyperplasia, columnar cell alterations and apocrine cysts as well as a small focus of pseudoangiomatous stromal hyperplasia. No evidence of invasive malignancy. Findings are benign and concordant with imaging. Recommendation: 1. Diagnostic right mammogram in 6 months ASSESSMENT: BI-RADS 2 Ordered By: KAYLA RAMOS Interpreted By: Jorge Glass MD, 07/21/2023 8:36 AM Addendum by Jorge Glass MD on 07/21/2023 8:34 AM CDT Pathology addendum: The pathology report demonstrates the presence of nonproliferative fibrocystic change with benign nodular fibrosis. Findings are benign and concordant with imaging. Recommendation: 1. Diagnostic right mammogram in 6 months ASSESSMENT: BI-RADS 2 Ordered By: KAYLA RAMOS Interpreted By: Jorge Glass MD, 07/21/2023 8:32 AM Impressions 07/06/2023 9:11 AM ORGAN RECOVERY COORDINATOR IMPRESSION: 1) Successful stereotactic biopsy focal asymmetry axillary tail right breast. No complications were encountered. 2. Pathology is pending. An addendum will be made to this report when the pathology is finalized. Ordered By: KAYLA RAMOS Interpreted By: Jorge Glass MD, 07/06/2023 9:06 AM Narrative 07/06/2023 9:11 AM ORGAN RECOVERY COORDINATOR Examination: MG POST PROC RT DIAG MAMMO, MG STEREO CORE BX RT BIRAD Exam time: 07/06/2023 7:52 AM Clinical history: Patient referred for stereotactic biopsy of a superficially located focal asymmetry in the axillary tail region of the right breast seen on outside screening and diagnostic mammogram. Comparison: Mammograms 05/31/2023 and 06/10/2023 Technique: The procedure and possible risks were explained to the patient. Written consent to proceed was obtained. Previous films were reviewed. Small focal asymmetric density seen in the posterior superior right breast appears to be in the axillary tail on lateral exaggerated CC view. Lateral to medial approach in the lateral projection was felt to be optimal. Stereotactic right breast biopsy: Patient was placed on the table in the prone position and localizing images were obtained for lateral to medial approach. Skin site selected and prepped in sterile fashion. Skin and subcutaneous tissues anesthetized with 1% lidocaine. Skin mani made with a #11 scalpel. A 9 gauge vacuum assist core biopsy device advanced to the target with repeat images demonstrating good position. A series of 9 gauge core biopsy samples were then obtained with immediate digital reconstruction of specimen radiographs. There is focal dense tissue within multiple specimens felt to be consistent with the target. After adequate sample was obtained a biopsy site clip marker was placed in standard fashion and the sheath was removed. Hemostasis achieved with direct compression. No complications were encountered. Samples stored in formalin and sent to pathology for review. Findings: Diagnostic right mammogram: CC and ML postprocedure mammograms obtained. No evidence of significant postprocedure complication. Biopsy site clip appears to be in good position relative to the targeted on both views. Pathology: Pathology is pending. An addendum made to this report when the pathology is finalized. Procedure Note Jorge Glass MD - 07/06/2023 Examination: MG POST PROC RT DIAG MAMMO, MG STEREO CORE BX RT BIRAD Exam time: 07/06/2023 7:52 AM Clinical history: Patient referred for stereotactic biopsy of asuperficially located focal asymmetry in the axillary tail region of theright breast seen on outside screening and diagnostic mammogram. Comparison: Mammograms 05/31/2023 and 06/10/2023 Technique: The procedure and possible risks were explained to the patient.Written consent to proceed was obtained. Previous films were reviewed.Small focal asymmetric density seen in the posterior superior right breastappears to be in the axillary tail on lateral exaggerated CC view. Lateralto medial approach in the lateral projection was felt to be optimal. Stereotactic right breast biopsy: Patient was placed on the table in theprone position and localizing images were obtained for lateral to medialapproach. Skin site selected and prepped in sterile fashion. Skin andsubcutaneous tissues anesthetized with 1% lidocaine. Skin mani made with a#11 scalpel. A 9 gauge vacuum assist core biopsy device advanced to thetarget with repeat images demonstrating good position. A series of 9 gaugecore biopsy samples were then obtained with immediate digitalreconstruction of specimen radiographs. There is focal dense tissue withinmultiple specimens felt to be consistent with the target. After adequatesample was obtained a biopsy site clip marker was placed in standardfashion and the sheath was removed. Hemostasis achieved with directcompression. No complications were encountered. Samples stored in formalinand sent to pathology for review. Findings: Diagnostic right mammogram: CC and ML postprocedure mammograms obtained.No evidence of significant postprocedure complication. Biopsy site clipappears to be in good position relative to the targeted on both views. Pathology: Pathology is pending. An addendum made to this report when thepathology is finalized. IMPRESSION: 1) Successful stereotactic biopsy focal asymmetry axillary tail rightbreast. No complications were encountered. 2. Pathology is pending. An addendum will be made to this report when thepathology is finalized. Ordered By: KAYLA RAMOS Interpreted By: Jorge Glass MD, 07/06/2023 9:06 AM Kayla Ramos OPERATIONS LOGISTICS ANALYST MAMMO Edited Result - Final from Last 3 Months or Most Recently Relevant to Health Maintenance Insurance [employer] Care Teams Chemical Processing Supervisor Relationship Specialty Start Date End Date Raman Moore DO [address] [place] [address] PCP - General 07/05/23
[2025-03-14 15:53] LABS: Alanine Aminotransferase 34 U/L (6-35); Albumin Level 4.8 g/dL (3.5-5.1); Alkaline Phosphatase 109 U/L (38-126); Anion Gap 12 mmol/L (4-12); Aspartate Amino Transferase 35 U/L (14-36); Blood Urea Nitrogen 11 mg/dL (7-17); Calcium 10.1 mg/dL (8.4-10.2); Carbon Dioxide 27 mmol/L (22-30); Chloride 109 mmol/L (98-107); Estimated Glomerular Filt Rate > 60; Glucose 119 mg/dL (65-110); Iron 117 ug/dL (37-170); Osmolality Calculated 306 mOsm/kg (285-295); Potassium 4.1 mmol/L (3.4-5.0); Sodium 148 mmol/L (137-145); Total Protein 7.9 g/dL (6.3-8.2)
[2025-03-14 16:11] LABS: Free T4 Free Thyroxine 1.33 ng/dL (0.78-2.19)
[2025-03-14 16:24] LABS: Thyroid Stimulating Hormone 2.020 uIU/mL (0.465-4.680)
[2025-03-14 16:43] LABS: Vitamin B12 579.0 pg/mL (239-931)
[2025-03-15 09:20] LABS: Total Triiodothyronine (T3) 1.62 NG/ML (0.97-1.69)
[2025-03-20 16:06] LABS: Bilirubin,Total 0.5 mg/dL (0.2-1.3)
== END 2025-03-14 12:46 | disposition home or self-care (01) ==
PROVIDERS: PCP Nurse Practitioner Family; Visit Provider Nurse Practitioner Family
DX: R53.83 Other fatigue (principal); Z79.899 Other long term (current) drug therapy; R06.02 Shortness of breath; I10 Essential (primary) hypertension
CPT/HCPCS: 36415; 71046; 80053; 81001; 82306; 82607; 83540; 84439; 84443; 84480; 85025; 87086; 93005

== ENCOUNTER 2025-04-11 14:50 | Outpatient (CLI) | payer OTHER, SELFPAY ==
--- NOTE | 2025-04-11 15:18 | ECHO_ITS ---
Patient Info Name: Jordyn Gordon Age: 54 years : 1970 Gender: Female Ht: 71 in Wt: 239 lbs BSA: 2.36 m2 HR: 83 bpm BP: 157 / 93 mmHg Heart Rhythm: Sinus Rhythm Technical Quality: Fair Exam Date: 04/11/2025 3:23 PM Patient Status: O Admit Date: 04/11/2025 Exam Type: CA echo doppler color flow Complete two-dimensional, color flow and Doppler transthoracic echocardiogram is performed. Risk Modeler: Shana Servin Attending Provider: Nannette Chang Summary 1. Complete two-dimensional, color flow and Doppler transthoracic echocardiogram is performed. 2. Left ventricular chamber dimension is normal. 3. Left ventricular systolic function is normal, estimated at 60-65. 4. The left ventricular diastolic function is grade I diastolic dysfunction. 5. E/e' 16 is elevated. 6. There is trace tricuspid valve regurgitation. 7. Mild pulmonary hypertension, estimated pulmonary arterial systolic pressure is 44 mmHg. Left Ventricle E/e' 16 is elevated. Left ventricular chamber dimension is normal. Left ventricular systolic function is normal, estimated at 60-65. The left ventricular diastolic function is grade I diastolic dysfunction. Right Ventricle Right ventricular chamber dimension is normal. Right ventricular systolic function is normal and wit h normal TAPSE 1.9 cm. Left Atria Left atrial chamber dimension is normal. Right Atria Right atrial chamber dimension is normal. Aortic Valve The aortic valve is trileaflet. There is no aortic valve stenosis. There is no aortic valve regurgitation. Pulmonic Valve There is no pulmonic regurgitation. Mitral Valve There is no mitral valve stenosis. There is no mitral valve regurgitation. Tricuspid Valve There is trace tricuspid valve regurgitation. Mild pulmonary hypertension, estimated pulmonary arterial systolic pressure is 44 mmHg. Pericardium/Pleural There is no pericardial effusion. Inferior Vena Cava Normal inferior vena cava with >50% collapse upon inspiration consistent with normal right atrial pressure, 5 mmHg. Aorta The aortic root size at the sinus of Valsalva is normal. Left Ventricular Outflow Tract Name Value Normal LVOT 2D LVOT Diameter 2.0 cm LVOT Doppler LVOT Peak Velocity 104 cm/s LVOT Peak Gradient 4 mmHg LVOT Mean Gradient 2 mmHg LVOT VTI 20 cm LVOT VTI/AV VTI Ratio 0.7 LVOT Stroke Volume 63 ml LVOT CO 4.4 l/min LVOT CI 1.9 l/min/m2 Pulmonic Valve Name Value Normal RVOT Doppler RVOT Peak Velocity 77 cm/s RVOT Peak Gradient 2 mmHg PV Doppler PV Peak Velocity 95 cm/s PV Peak Gradient 4 mmHg Mitral Valve Name Value Normal MV Diastolic Function MV E Peak Velocity 91 cm/s MV A Peak Velocity 120 cm/s MV E/A 0.8 MV Decel Time (PW) 276 ms MV Annular TDI MV E/e' (Septal) 18.9 MV E/e' (Lateral) 15.3 MV E/e' (Average) 17.1 Tricuspid Valve Name Value Normal TV Regurgitation Doppler TR Peak Velocity 313 cm/s TR Peak Gradient 39 mmHg Estimated PAP/RSVP RA Pressure 5 mmHg <=5 PA Systolic Pressure 44 mmHg <36 RV Systolic Pressure 44 mmHg <36 TV Annular TDI TV Lateral Denisa s' Velocity 13.9 cm/s >=9.5 Aorta Name Value Normal Ascending Aorta Ao Root Diameter (MM) 2.8 cm Ao Root Diam Index (MM) 1.2 cm/m2 Aortic Valve Name Value Normal AV Doppler AV Peak Velocity 165 cm/s AV Peak Gradient 11 mmHg AV Mean Gradient 5 mmHg AV VTI 30 cm AV Area (Cont Eq VTI) 2.1 cm2 >=3.0 AV Area (Cont Eq Santi) 2.0 cm2 AV DI (Santi) 0.63 AV Regurgitation 2D LVOT Area 3.2 cm2 Ventricles Name Value Normal LV Dimensions 2D/MM IVS Diastolic Thickness (2D) 0.8 cm 0.6-1.0 LVID Diastole (2D) 4.4 cm 3.8-5.2 LVIW Diastolic Thickness (2D) 0.9 cm 0.6-0.9 LVID Systole (2D) 2.9 cm 2.2-3.5 LVOT Diameter 2.0 cm LV Mass (2D Cubed) 119.89 g 67.00-162.00 LV Mass Index (2D Cubed) 51 g/m2 43-95 Relative Wall Thickness (2D) 0.40 <=0.42 LV Fractional Shortening/Ejection Fraction 2D/MM LV Fractional Shortening (2D) 34 % 27-45 LV EF (2D Teichholz) 63 % LV Diastolic Volume (4C MOD) 64 ml LV EF (4C MOD) 66 % LV Diastolic Volume (2C MOD) 108 ml LV EF (2C MOD) 75 % LV Diastolic Volume (BP MOD) 86 ml 46-106 LV Diastolic Volume Index (BP MOD) 36 ml/m2 29-61 LV Systolic Volume (BP MOD) 24 ml 14-42 LV Systolic Volume Index (BP MOD) 10 ml/m2 8-24 LV EF (BP MOD) 72 % 54-74 LV Diastolic Length (4C) 7.3 cm LV Systolic Length (4C) 5.7 cm LV Stroke Volume (4C MOD) 42 ml Atria Name Value Normal LA Dimensions LA Dimension (MM) 4.0 cm 2.7-3.8 LA Volume (4C A-L) 29 ml LA Volume (BP A-L) 32 ml RA Dimensions RA Area (4C) 11.0 cm2 <=18.0 Report Signatures
== END 2025-04-11 14:51 | disposition home or self-care (01) ==
LOC: ANHCARD 14:54
PROVIDERS: PCP Nurse Practitioner Family; Visit Provider Nurse Practitioner Family
DX: R06.02 Shortness of breath (principal); I10 Essential (primary) hypertension; R53.83 Other fatigue; I27.20 Pulmonary hypertension, unspecified
CPT/HCPCS: 93306

== ENCOUNTER 2025-05-01 09:13 | Emergency (ER) | payer OTHER, SELFPAY ==
--- OUTSIDE RECORDS SUMMARY | 2024-05-18 07:00 | XMS_ITS ---
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 No accident or injury is reported, but she finds that standing all day at her job makes it worse. She also has pain with initial step in the morning Medications Medication SIG (Take, Route, Frequency, Duration) Notes Start Date End Date Status methylPREDNISolone 4 MG Tablet Therapy Pack as directed Orally one pack 05/18/2024 Ac tive Social History Sex Assigned At : Social History Observation Description Sex Assigned At Female Encounters Encounter Location Date Provider Diagnosis [facility] [address] [place], [place] [id number] 05/18/2024 ROSIBEL SLOAN Plantar fascial fibromatosis M72.2 ; Peroneal tendinitis, right leg M76.71 and Pain in right ankle and joints of right foot M25.571 Assessments Encounter Date Diagnosis (ICD Code) Assessment Notes Treatment Notes Treatment Clinical Notes Section Notes 05/18/2024 Plantar fascial fibromatosis (ICD-10 - M72.2) Plantar Fascitis: I discussed anti-inflammatory treatment options and various means of pronation control with the patient. I educated the patient on icing and stretching, supportive shoegear, and the use of orthotic devices. PowerStep Inserts: The patient was dispensed and fitted with over the counter arch supports. The patient was educated on their use and effect. All questions were answered. 05/18/2024 Peroneal tendinitis, right leg (ICD-10 - M76.71) Peroneal Tendonitis: I discussed anti-inflammatory treatment options and various means of immobilization with the patient. I educated the patient on icing and stretching, supportive shoegear, and the use of orthotic devices and bracing. 05/18/2024 Pain in right ankle and joints of right foot (ICD-10 - M25.571) Sinus Tarsi Syndrome: I discussed anti-inflammatory treatment options and various means of immobilization with the patient. I educated the patient on icing and stretching, supportive shoegear, and the use of orthotic devices and bracing. Plan Of Treatment Medication Medication Name Sig Start Date Stop Date Notes methylPREDNISolone 4 MG Tabl et Therapy Pack as directed Orally 05/18/2024 one pack Treatment Notes Assessment Notes Plantar fascial fibromatosis Plantar Fascitis: I discussed anti-inflammatory treatment options and various means of pronation control with the patient. I educated the patient on icing and stretching, supportive shoegear, and the use of orthotic devices. PowerStep Inserts: The patient was dispensed and fitted with over the counter arch supports. The patient was educated on their use and effect. All questions were answered. Peroneal tendinitis, right leg Peroneal Tendonitis: I discussed anti-inflammatory treatment options and various means of immobilization with the patient. I educated the patient on icing and stretching, supportive shoegear, and the use of orthotic devices and bracing. Pain in right ankle and join ts of right foot Sinus Tarsi Syndrome: I discussed anti-inflammatory treatment options and various means of immobilization with the patient. I educated the patient on icing and stretching, supportive shoegear, and the use of orthotic devices and bracing. Next Appt Details Follow Up: 2 Weeks, Reason: See how oral steroid and PowerSteps helped. If no imporvement, cortisone injection History and Physical Notes * HPI (History of Present Illness) Category Sub-Category Detail Notes Category Not es HPI New Complaint Patient presents for a new patient consultation., Patient complains of an issue to right heel pain. Patient states that her heel would hurt standing after sitting for long periods of time. She states that her ankle has started to swell and the top of her foot has started to have some pain. She had x-rays done with her PCP. , Duration of problem is 3 months. , MILLY: joaquim Examination Category Sub-Category Detail Notes Category Not es Dermatologic Skin findings: Skin is warm, dr y, supple with no breaks in the skin Neurologic Gross sensation Gross sensation is intact to light touch Vascular Dorsalis pedis pulse: 2/4, bilateral Edema: No edema, bilateral Capillary refill: less than 3 seconds Posterior tibial pulse: 2/4, bilateral Musculoskeletal Muscle Strength Muscle strength is 5/5 in regards to dorsiflexion, plantarflexion, inversion, and eversion in bilateral lower extremities Pain on palpation medial band of the r ight plantar fascia near its attachment to the calcaneus, peroneal tendons of the right foot., lateral portal of the right sinus tarsi and with ROM of the subtalar joint. Constitutional Constitutional The patient is a wake, alert, well developed, well groomed and well nourished Progress Notes * CARTER Jordyn WestonDOB:1970 ( 54 yo F)Acc No.[id number]:05/18/2024 Progress Notes Patient: Jordyn Liriano ae Provider: Michell Sloan DPM :1970 A ge:53 Y S ex:Female Date:05/18/2024 Address:[address] [place], [place] [id number] Subjective: * Chief Complaints: * T he patient has pain in multiple areas of her right foot and ankle. No accident or injury is reported, but she finds that standing all day at her job makes it worse. She also has pain with initial step in the morning * HPI: H PI: New Complaint P atient presents for a new patient consultation., Patient complains of an issue to right heel pain. Patient states that her heel would hurt standing after sitting for long periods of time. She states that her ankle has started to swell and the top of her foot has started to have some pain. She had x-rays done with her PCP. , Duration of problem is 3 months. , MILLY: joaquim. * ROS: G eneral / Constitutional: Patient denies c hills, fever, weakness, night sweats. M usculoskeletal: Patient denies c hildhood foot problems, weakness. P atient complains of h eel pain, arch pain. P eripheral Vascular: Patient denies u lceration of feet, cold extremities. ? S kin: Patient denies u lcerations, discoloration. ? N eurologic: Patient denies b alance difficulty, confusion, difficulty speaking, dizziness. * Medical History: Hypertension Medical History Verified * Medications: N one * Allergies: P enicillinyesAllergies Verified. Objective: * Vitals: S hoe Size: 10.09/10. * Examination: C onstitutional: Constitutional T he patient is awake, alert, well developed, well groomed and well nourished. D ermatologic: Skin findings: S kin is warm, dry, supple with no breaks in the skin. V ascular: Dorsalis pedis pulse: 2 /4, bilateral. Posterior tibial pulse: 2 /4, bilateral. Capillary refill: l ess than 3 seconds. Edema: N o edema, bilateral. N eurologic: Gross sensation G ross sensation is intact to light touch.? M usculoskeletal: Muscle Strength M uscle strength is 5/5 in regards to dorsiflexion, plantarflexion, inversion, and eversion in bilateral lower extremities. Pain on palpation m edial band of the right plantar fascia near its attachment to the calcaneus, peroneal tendons of the right foot., lateral portal of the right sinus tarsi and with ROM of the subtalar joint.. Assessment: * Assessment: 1. P lantar fascial fibromatosis - M72.2 (Primary) 2 . P eroneal tendinitis, right leg - M76.71 3 . P ain in right ankle and joints of right foot - M25.571? Plan: * Treatment: 2. P eroneal tendinitis, right leg Notes: Peroneal Tendonitis: I discussed anti-inflammatory treatment options and various means of immobilization with the patient. I educated the patient on icing and stretching, supportive shoegear, and the use of orthotic devices and bracing. 3. P ain in right ankle and joints of right foot Notes: Sinus Tarsi Syndrome: I discussed anti-inflammatory treatment options and various means of immobilization with the patient. I educated the patient on icing and stretching, supportive shoegear, and the use of orthotic devices and bracing. * Follow Up: 2 Weeks (Reason: See how oral steroid and PowerSteps helped. If no imporvement, cortisone injection) Billing Information: * Visit Code: 31439 Office Visit, New Pt., Level 3. * Electronic signature of ROSIBEL SLOAN DPM on 05/01/2025 at 09:23 AM ARTICULATION OFFICER Sign off status: Pending * Provider: Michell Sloan DPM Date: 0 05/18/2024 Generated for Emigdio dahl/Obi/Israelitting on: 09:23 AM ARTICULATION OFFICER
[2025-05-01] VITALS (9 sets, daily range): BP systolic 127–144; BP diastolic 73–88; PULSE 81–99; RESP 15–28; TEMP 36.6; O2SAT 96–100
--- NOTE | ~2025-05-01 | CT_ITS ---
EXAMINATION: CTA chest PE protocol DATE: 05/01/2025 11:16 INDICATION: Shortness of breath. TECHNIQUE: Computed tomography angiography (CTA) of the chest was performed with 100 mL Omnipaque-350 intravenous contrast timed to evaluate the pulmonary arteries. Coronal maximum intensity projection 3D-reconstructions were created by the technologist. Automated exposure control and iterative reconstruction technique were employed. The dose-length product was 562.79 mGy-cm. COMPARISON: None. FINDINGS: Calcified pulmonary nodules are consistent with old granulomatous disease. No pleural effusion. The heart size is normal. No pericardial effusion. There is no pulmonary embolus. There are changes of cholecystectomy. There is levoscoliosis of upper thoracic spine and dextroscoliosis of lower thoracic spine. There is mild thoracic spondylosis. IMPRESSION: 1. No pulmonary embolus. Sensitivity is moderately decreased by motion artifact. Reviewed, dictated and finalized at location E. OMER EXPERIENCE ASSOCIATE IMPRESSION: 1. No pulmonary embolus. Sensitivity is moderately decreased by motion artifact .
--- NOTE | 2025-05-01 09:18 | ECG_ITS ---
Test Date: 2025-05-01 09:32:20 Measurements Intervals [place] Rate: 84 P: 76 AL: 143 QRS: 82 QRSD: 85 T: 80 QT: 370 QTc: 438 Interpretive Statements SINUS RHYTHM DELAYED PRECORDIAL R/S TRANSITION BASELINE ARTIFACT- I, II, III, AVR, AVL, AVF, V1-V6 BORDERLINE ECG Compared to ECG 03/14/2025 13:09:33 No significant changes Electronically Signed On 05-01-2025 10:06:12 COMMERCIAL LENDER by Stone Sanders D.O.
--- OUTSIDE RECORDS SUMMARY | 2025-05-01 09:23 | XMS_ITS | Patient Health Record ---
Author Organization [facility] Address [address] [place], [place] [id number] Care Team Providers Care Marketing Communications Coordinator Name Role Phone ROSIBEL SLOAN Unavailable [phone] Raman Moore Unavailable Unavailable Allergies Allergen (clinical drug ingredient) Drug/Non Drug Allergy documented on EMR Reaction Allergy Type Onset Date Status Penicillin Unknown Drug Allergy Active Reason For Referral Reason [employer] KRYSTIAN O REF ERRAL REQUEST ( APPOINTMENT: 07/20/2024 ) Diagnosis 1 Pain in right ankle and joints of right foot (M25.571) Diagnosis 2 Pain in right foot ( M79.671) Diagnosis 3 Left foot pain (M79. 672) Diagnosis 4 Plantar fascial fibr omatosis (M72.2) Diagnosis 5 Peroneal tendinitis, right leg (M76.71) Diagnosis 6 Posterior tibial ten dinitis, right leg (M76.821) Referral Organization [facility] Referring Provider First Name ROSIBEL Referring Provider Last Name NATHALIA Referring Provider Speciality Podiatry Referred Provider Raman Moore Referred Provider Specialty General phys ician Referral Priority Routine Medications Medication SIG (Take, Route, Frequency, Duration) Notes Start Date End Date Status methylPREDNISolone 4 MG Tablet Therapy Pack as directed Orally one pack 05/18/2024 Ac tive Social History Sex Assigned At : Social History Observation Description Sex Assigned At Female Encounters Encounter Location Date Provider Diagnosis [facility] [address], [place] [id number] 05/18/2024 ROSIBELAVEL SLOAN Plantar fascial fibromatosis M72.2 ; Peroneal tendinitis, right leg M76.71 and Pain in right ankle and joints of right foot M25.571 [facility] [address] [place], [place] [id number] 06/08/2024 ROSIBEL SNOOK Plantar fascial fibromatosis M72.2 ; Pain in right ankle and joints of right foot M25.571 and Pain in right foot M79.[address] [id number] 06/22/2024 ROSIBEL SNOOK Pain in right ankle and joints of right foot M25.571 ; Lesion of plantar nerve, 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 06/08/2024 Pain in right ankle and joints of right foot (ICD-10 - M25.571) Sinus Tarsi Syndrome: I discussed anti-inflammatory treatment options and various means of immobilization with the patient. I educated the patient on icing and stretching, supportive shoegear, and the use of orthotic devices and bracing. Kenalog Injection: Following skin prep, a total of 3 ccs of a 1-1-1 mix of 0.5% marcaine plain, 1% lidocaine plain, and Kenalog was injected to the right sinus tarsi 06/08/2024 Plantar fascial fibromatosis (ICD-10 - M72.2) Plantar [...] use and effect. All questions were answered. 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 Discussed conservative care consisting of padding, wider shoes, anti-inflammatorie s, and orthotics. Discussed surgical treatment options and answered all questions about the intra-operative and post-operative treatment course. added a metatarsal pad to the left PowerStep 06/22/2024 Pain in right ankle and joints of right foot (ICD-10 - M25.571) Sinus Tarsi Syndrome: I discussed anti-inflammatory treatment options and various means of immobilization with the patient. I educated the patient on icing and stretching, supportive shoegear, and the use of orthotic devices and bracing. Kenalog Injection: Following skin prep, a total of 3 ccs of a 1-1-1 mix of 0.5% marcaine plain, 1% lidocaine plain, and Kenalog was injected to the right sinus tarsi 07/06/2024 Pain in right ankle and joints of right foot (ICD-10 - M25.571) Sinus Tarsi Syndrome: I discussed anti-inflammatory treatment options and various means of immobilization with the patient. I educated the patient on icing and stretching, supportive shoegear, and the use of orthotic devices and bracing. Continue PowerSteps and supportive shoes 07/06/2024 Posterior tibial tendinitis, right leg (ICD-10 - M76.821) Posterior Tibialis Tendon Dysfunction: I discussed anti-inflammatory treatment options and various means of immobilization with the patient. I educated the patient on icing and stretching, supportive shoegear, and the use of orthotic devices and bracing. Kenalog Injection: Following skin prep, a total of 3 ccs of a 1-1-1 mix of 0.5% marcaine plain, 1% lidocaine plain, and Kenalog was injected to the right heel (medial aspect) 05/18/2024 Pain in right ankle and joints of right foot (ICD-10 - M25.571) Sinus Tarsi Syndrome: I discussed anti-inflammatory treatment options and various means of immobilization with the patient. I educated the patient on icing and stretching, supportive shoegear, and the use of orthotic devices and bracing. 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 Discussed conservative care consisting of padding, wider shoes, anti-inflammatorie s, and orthotics. Discussed surgical treatment options and answered all questions about the intra-operative and post-operative treatment course. 06/08/2024 Pain in right foot (ICD-10 - M79.671) 06/22/2024 Pain in right foot (ICD-10 - M79.671) 07/06/2024 Pain in right foot (ICD-10 - M79.671) Plan Of Treatment No Information Insurance Providers Payer Name Payer Address Payer Phone Subscriber Number Group Number Insured Name Patient Relationship to Insured Coverage Start Date Coverage End Date [employer] [address] [place] [phone] [id number] Jordyn Gordon Self - patient is the insured Medical (General) History Medical History History ICD Code hypertension
--- OUTSIDE RECORDS SUMMARY | 2025-05-01 09:23 | XMS_ITS | Clinical Summary ---
Author Organization [facility] Address [address] [place] [address] Care Team Providers Care Yard Jockey Name Role Phone JamieRaman urrutia Primary Care Provider [phone] Social History Tobacco Use Types Packs/Day Years Used Date Smoking Tobacco: Never Assessed Comments Unknown Sex and Gender Information Value Date Recorded Sex Assigned at Not on file Legal Sex Female 2:22 PM WRAPPER STEMMER HAND Gender Identity Not on file Sexual Orientation [...] RT DIAG MAMMO Routine 07/06/2023 9:00 AM WRAPPER STEMMER HAND Abnormal mammogram from Last 3 Months or Most Recently Relevant to Health Maintenance Results * MG POST PROC RT DIAG MAMMO (07/06/2023 9:00 AM WRAPPER STEMMER HAND) Anatomical Region Laterality Modality Breast Right Radiographic Ratna ging 07/06/2023 9:06 AM WRAPPER STEMMER HAND Addenda Addendum by Jorge Glass MD on [...] 07/21/2023 8:32 AM Impressions 07/06/2023 9:11 AM WRAPPER STEMMER HAND IMPRESSION: 1) Successful stereotactic biopsy focal asymmetry axillary tail right breast. No complications were encountered. 2. Pathology is pending. An addendum will be made to this report when the pathology is finalized. Ordered By: KAYLA RAMOS Interpreted By: Jorge Glass MD, 07/06/2023 9:06 AM Narrative 07/06/2023 9:11 AM WRAPPER STEMMER HAND Examination: MG POST PROC RT DIAG MAMMO, [...] Glass MD, 07/06/2023 9:06 AM Kayla Ramos FORM BUILDER HELPER MAMMO Edited Result - Final from Last 3 Months or Most Recently Relevant to Health Maintenance Insurance [employer] Care Teams Yard Jockey Relationship Specialty Start Date End Date Raman Moore DO [address] [place] [address] PCP - General 07/05/23
[2025-05-01 09:38] LABS: Hematocrit 43.2 % (35.0-49.0); Hemoglobin 14.7 g/dL (12.0-15.0); Immature Granulocyte Percent A 0.3 % (0.0-0.0); Lymphocytes Absolute Auto 1.66 K/mm3 (1.10-4.50); Mean Corpuscular HGB Conc 34.0 g/dL (32-36); Mean Corpuscular Hemoglobin 30.6 pg (27.0-31.0); Mean Corpuscular Volume 90.0 fL (78.0-102.0); Nucleated Red Blood Cells Absolute Auto 0.00 K/mm3 (0.00-0.00); Nucleated Red Blood Cells Perc 0.0 % (0-0.0); Platelet Count Result 246 K/mm3 (150-420); Red Blood Count 4.80 M/mm3 (4.20-5.40); White Blood Count 6.2 K/mm3 (4.8-10.8)
[2025-05-01 09:50] LABS: Alanine Aminotransferase 28 U/L (6-35); Albumin Level 4.9 g/dL (3.5-5.1); Alkaline Phosphatase 138 U/L (38-126); Anion Gap 15 mmol/L (4-12); Aspartate Amino Transferase 29 U/L (14-36); Bilirubin,Total 0.6 mg/dL (0.2-1.3); Blood Urea Nitrogen 12 mg/dL (7-17); Calcium 10.1 mg/dL (8.4-10.2); Carbon Dioxide 21 mmol/L (22-30); Chloride 112 mmol/L (98-107); Estimated CRCL calculation 84 ml/min; Estimated Glomerular Filt Rate > 60; Glucose 120 mg/dL (65-110); Osmolality Calculated 306 mOsm/kg (285-295); Potassium 4.0 mmol/L (3.4-5.0); Sodium 148 mmol/L (137-145); Total Protein 8.4 g/dL (6.3-8.2)
[2025-05-01 10:01] LABS: NT Pro B Type Natriuretic Pept < 20 pg/mL (19.9-100); Troponin I < 0.012 ng/mL (0.000-0.034)
--- NOTE | 2025-05-01 10:26 | PC.NURSE ---
patient ambulatory to the bathroom with steady gait. no distress noted.
[2025-05-01] MEDS: SODIUM CHLORIDE 0.9% IV 1,000 ML 999 ML IV CONT (10:34)
--- OUTSIDE RECORDS SUMMARY | 2025-05-01 11:32 | XMS_ITS | Clinical Summary ---
Author Organization [facility] Address [address] [place] [address] Care Team Providers Care Director Pharmacology Name Role Phone JamieRaman urrutia Primary Care Provider [phone] Social History Tobacco Use Types Packs/Day Years Used Date Smoking Tobacco: Never Assessed Comments Unknown Sex and Gender Information Value Date Recorded Sex Assigned at Not on file Legal Sex Female 2:22 PM SPOOL WINDER Gender Identity Not on file Sexual Orientation [...] RT DIAG MAMMO Routine 07/06/2023 9:00 AM SPOOL WINDER Abnormal mammogram from Last 3 Months or Most Recently Relevant to Health Maintenance Results * MG POST PROC RT DIAG MAMMO (07/06/2023 9:00 AM SPOOL WINDER) Anatomical Region Laterality Modality Breast Right Radiographic Ratna ging 07/06/2023 9:06 AM SPOOL WINDER Addenda Addendum by Jorge Glass MD on [...] 07/21/2023 8:32 AM Impressions 07/06/2023 9:11 AM SPOOL WINDER IMPRESSION: 1) Successful stereotactic biopsy focal asymmetry axillary tail right breast. No complications were encountered. 2. Pathology is pending. An addendum will be made to this report when the pathology is finalized. Ordered By: KAYLA RAMOS Interpreted By: Jorge Glass MD, 07/06/2023 9:06 AM Narrative 07/06/2023 9:11 AM SPOOL WINDER Examination: MG POST PROC RT DIAG MAMMO, [...] Glass MD, 07/06/2023 9:06 AM Kayla Ramos HAND ROUTER OPERATOR MAMMO Edited Result - Final from Last 3 Months or Most Recently Relevant to Health Maintenance Insurance [employer] Care Teams Director Pharmacology Relationship Specialty Start Date End Date Raman Moore DO [address] [place] [address] PCP - General 07/05/23
--- NOTE | 2025-05-01 11:34 | ED.GENADULT ---
HPI - General Adult General Chief complaint: Shortness of Breath/Dyspnea Stated complaint: shortness of breath Time Seen by Provider: 05/01/25 09:16 Source: patient Mode of arrival: wheelchair Limitations: no limitations History of Present Illness HPI narrative: 54-year-old with a history of hypertension, pulmonary hypertension here with the complaints of sudden onset of shortness of breath, right-sided chest pain associated with chills since this morning. Patient states that he has history of anxiety on Wellbutrin for the past few days. Recently quit smoking. Denies any fever or cough. No previous history of COPD or asthma. Onset (ago): day(s) (1) Location: chest Related Data Allergies Allergy/AdvReac Type Severity Reaction Status Date / Time Penicillins Allergy Severe Dyspnea / Verified 05/01/25 09:27 SOB Review of Systems Review of Systems: All systems reviewed & are unremarkable except as noted in HPI and below Constitutional: Constitutional: Reports as per HPI Eyes: Eyes: Reports as per HPI ENT: Reports system reviewed and no additional complaints, except as documented Cardiovascular: Cardiovascular: Reports no additional cardiovascular complaints Respiratory: Respiratory: Reports as per HPI Gastrointestinal: Gastrointestinal: Reports no additional gastrointestinal complaints Genitourinary: Genitourinary: Reports no additional female genitourinary complaints Musculoskeletal: Musculoskeletal: Reports no additional musculoskeletal complaints Neurologic: Reports system reviewed and no additional complaints, except as documented Psychiatric: Psychiatric: Reports no additional psychiatric complaints Endocrine: Endocrine: Reports no additional endocrine complaints [facility] Past Medical History Medical History Anxiety Carpal tunnel syndrome, left Surgical History Surgical History History of partial hysterectomy History of knee surgery Left knee meniscus History of carpal tunnel surgery Right wrist History of cholecystectomy Family History Family History Other Arthritis Hypertension Social History Social History Smoking packs per day: 1.5 Smoking cigarettes per day: 30.0 Years smoked: 34 Smoking pack-years: 51.00 Smoking status: Current some day smoker Tobacco type: cigarettes Alcohol intake: current Substance use: never Substance use type: does not use Last use: 08/2021 Living arrangements: with family Occupation/Education: occupation 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 HEAD: Normocephalic, atraumatic. EYES: PERRLA and EOMI. ENT: Nares clear, no rhinorrhea or epistaxis. Mucous membranes moist. NECK: Supple. CHEST: Clear to auscultation. No respiratory distress. HEART: Regular rate and rhythm. No murmur heard. Normal peripheral pulses. ABDOMEN: Soft, nontender, nondistended, normal active bowel sounds. EXTREMITIES: Normal range of motion. No edema. SKIN: Warm, dry, no rash. NEURO: No focal deficits. Alert and oriented x3. PSYCH: Normal mood and affect. Course Course Emergency Course: notified patient and daughter about the lab work, EKG and CT findings. She seems to be much calmer and less anxious , advised her to continue home medications, follow with her PMD Vital Signs Vital signs: Vital Signs Temperature 36.6 C 05/01/25 09:13 Pulse Rate 99 05/01/25 09:13 Respiratory Rate 24 H 05/01/25 09:13 Pulse Oximetry 100 05/01/25 09:13 Oxygen Delivery Room Air 05/01/25 09:13 Temperature 36.6 C 05/01/25 09:13 Pulse Rate 99 05/01/25 09:13 Respiratory Rate 24 H 05/01/25 09:13 Pulse Oximetry 100 05/01/25 09:13 Oxygen Delivery Room Air 05/01/25 09:13 MDM Differential Diagnosis Differential Diagnosis: Pneumonia , PE , anxiety Medical Records I have reviewed the following patient records and this information was taken into consideration when formulating the assessment and plan.: previous labs, previous ER visits and previous hospitalizations Lab Data 05/01/25 09:26 05/01/25 09:26 Labs: Lab Results 05/01/25 Range/Units 09:26 WBC 6.2 (4.8-10.8) K/mm3 RBC 4.80 (4.20-5.40) M/mm3 Hgb 14.7 (12.0-15.0) g/dL Hct 43.2 (35.0-49.0) % MCV 90.0 (78.0-102.0) fL MCH 30.6 (27.0-31.0) pg MCHC 34.0 (32-36) g/dL RDW 12.3 (11.6-14.4) % Plt Count 246 (150-420) K/mm3 MPV 10.1 (9.2-11.8) fl Immature Gran % (Auto) 0.3 H (0.0-0.0) % Neut % (Auto) 63.1 (50.0-70.0) % Lymph % (Auto) 26.8 (18.0-42.0) % [place] % (Auto) 6.9 (2.0-11.0) % Eos % (Auto) 2.3 (1.0-6.0) % Baso % (Auto) 0.6 (0.0-1.0) % Lymph # (Auto) 1.66 (1.10-4.50) K/mm3 [place] # (Auto) 0.43 (0.10-0.90) K/mm3 Eos # (Auto) 0.14 (0.02-0.50) K/mm3 Baso # (Auto) 0.04 (0.00-0.10) K/mm3 Abs Immat Gran (auto) 0.02 H (0.00-0.00) K/mm3 Absolute Neuts (auto) 3.90 (1.70-7.20) K/mm3 Absolute Nucleated RBC 0.00 (0.00-0.00) K/mm3 Nucleated RBC % 0.0 (0-0.0) % D-Dimer 1.43 H (0.19-0.50) mg/L Sodium 148 H (137-145) mmol/L Potassium 4.0 (3.4-5.0) mmol/L Chloride 112 H (98-107) mmol/L Carbon Dioxide 21 L (22-30) mmol/L Anion Gap 15 H (4-12) mmol/L BUN 12 (7-17) mg/dL Creatinine 0.89 (0.7-1.0) mg/dL Estim Creat Clear Calc 84 ml/min Estimated GFR > 60 (59 - ) Glucose 120 H (65-110) mg/dL Calculated Osmolality 306 H (285-295) mOsm/kg Calcium 10.1 (8.4-10.2) mg/dL Total Bilirubin 0.6 (0.2-1.3) mg/dL AST 29 (14-36) U/L ALT 28 (6-35) U/L Alkaline Phosphatase 138 H (38-126) U/L Troponin I < 0.012 (0.000-0.034) ng/mL NT-Pro-B Natriuret Pep < 20 (19.9-100) pg/mL Total Protein 8.4 H (6.3-8.2) g/dL Albumin 4.9 (3.5-5.1) g/dL Imaging Data Radiologist's impression: ITS Impressions Chest CTA 05/01/25 11:19 IMPRESSION: 1. No pulmonary embolus. Sensitivity is moderately decreased by motion artifact. ECG Data EKG #1: ECG completion date: 05/01/25 ECG completion time: 09:32 normal rate (84), no ectopy, no ST changes, normal QRS and NL axis Discharge Plan Discharge Clinical Impression: Chest pain, non-cardiac, Anxiety, Elevated d-dimer Patient Disposition: Home Condition: Stable Instructions: Chest Pain (DC), Anxiety (ED) Additional Instructions: Continue home medications, follow with your doctor Patient Language: Hebrew Prescriptions: New hydroxyzine HCl 25 mg tablet 25 mg PO TID PRN (Reason: anxiety) Qty: 20 0RF No Action Brekorintri Aerosphere 160-9-4.8 mcg/actuation HFA aerosol inhaler 2 inh inhalation BID Qty: 10.7 1RF (DME) Vortex Holding Chamber Spacer See Rx Instructions .Route Qty: 1 2RF Rx Instructions: bid lisinopril 20 mg tablet 40 mg PO DAILY Qty: 180 2RF cyclobenzaprine 10 mg tablet 10 mg PO .HS PRN (Reason: muscle spasm) Qty: 30 1RF albuterol sulfate 90 mcg/actuation HFA aerosol inhaler 1 puff inhalation Q4H PRN (Reason: shortness of breath or wheezing) Qty: 8.5 2RF Rx Instructions: This is a RESCUE inhaler. nifedipine 30 mg tablet extended release 30 mg PO DAILY Qty: 60 0RF bupropion HCl [Wellbutrin XL] 150 mg tablet extended release 24 hr 300 mg PO QAM Qty: 60 0RF Rx Instructions: take one tab once daily x3 days, increase to 2 tabs on day 4 Follow-up/Referrals: Nannette Chang CHIEF II DISPATCHER [Primary Care Provider, [facility]] Time of Disposition: 11:42
== END 2025-05-01 11:54 | disposition home or self-care (01) ==
PROVIDERS: Emergency Provider Family Medicine; PCP Nurse Practitioner Family
DX: F41.9 Anxiety disorder, unspecified (principal); R79.1 Abnormal coagulation profile; I10 Essential (primary) hypertension; Z87.891 Personal history of nicotine dependence
CPT/HCPCS: 36415; 71275; 80053; 83880; 84484; 85025; 85380; 93005; 96360; 99284; J7030; Q9967